=== PATIENT | female | born 1935 | race Caucasian/White ===

== ENCOUNTER 2016-03-06 09:10 | Observation (INO) | payer MEDICARE, OTHER ==
[~2016-03-06] VITALS: Ht 167.6 cm; Wt 65.4 kg
[2016-03-06] VITALS (11 sets, daily range): BP systolic 105–130; BP diastolic 31–69; PULSE 71–95; RESP 18–24; O2SAT 89–98
[~2016-03-06 09:10] MED LIST: CARV25TA2 PO; CHOL200025 PO; DIGO125T73 PO; EZET1TAB16 PO; FURO40TA4 PO; LEVO50TA39 PO; LISI40TA PO; MULT-1073 PO; SPIR25TA PO; UBID400C6 PO; WARF3TAB7 PO
--- NOTE | 2016-03-06 09:25 | ED.REPORT ---
HPI-Dyspnea / Wheezing Date of Service Mar 06, 2016 ED Provider: Pt is an 80 y/o female who presents to the ER complaining of shortness of breath that has been worsening over the last few days. Her breathing is worse with exertion. She also complains of associated fluid retention, cough, and a fever last night. Pt states she has been taking all medication as prescribed. Pt denies dysuria, vomiting, diarrhea, rash, numbness, weakness, and chest pain. She is able to complete all her daily activities without any problems. Nursing Notes Stated Complaint: RETAINING FLUID Chief Complaint: Respiratory Distress Nursing Notes Reviewed: Yes Allergies: Coded Allergies: No Known Allergies (Verified Allergy, Unknown, 07/26/15) Scheduled Carvedilol (Carvedilol) 25 Mg Tablet 37.5 MG PO BID Cholecalciferol (Vitamin D3) (Vitamin D3) 2,000 Unit Tablet 2,000 UNIT PO DAILY Digoxin (Digoxin) 125 Mcg Tablet 125 MCG PO QAM Ezetimibe/Simvastatin 10-80 mg (Vytorin 10-80 mg) 1 Each Tablet 1 TABLET PO HS Furosemide (Furosemide) 40 Mg Tablet 40 MG PO 0830,1630 Levothyroxine (Levoxyl) 50 Mcg Tablet 50 MCG PO DAILY Lisinopril (Lisinopril) 40 Mg Tablet 40 MG PO QAM Multivits-Min/FA/Lycopene/Lut (Centrum Silver Tablet) 1 Each Tablet 1 EACH PO DAILY Spironolactone (Aldactone) 25 Mg Tablet 12.5 MG PO DAILY Ubidecarenone (Co Q-10) 400 Mg Capsule 400 MG PO DAILY Warfarin Sodium (Warfarin Sodium) 3 Mg Tablet 4.5 MG PO ,,, Warfarin Sodium (Warfarin Sodium) 3 Mg Tablet 6 MG PO Mo,We,Fr General Time Seen by MD: 09:24 Chief Complaint Cough Hx Obtained From: Patient Arrived By: Ambulance Sudden in Onset?: Yes Onset Occurred: Just prior to arrival Symptom Duration: Since onset Severity: Current: No pain currently Severity: Maximum: No pain Past Medical History Past Medical History Ischemic cardiomyopathy with systolic heart failure Reports: Congestive heart failure, Coronary artery disease, Hypertension Past Surgical History Reports: Pacemaker insertion Smoking History Former Smoker Social History Alcohol Use: 1-3 per day Drug Use: Denies drug use Other Social History: Lives with children Ambulatory Status Independent Review of Systems Constitutional: Reports: Fever (last night) Respiratory: Reports: Non-productive cough, Shortness of breath Cardiovascular: Denies: Chest pain Skin: Denies Rash Complete sys rev & neg: except as marked. GI: Denies: Diarrhea, Vomiting Female: Denies: Dysuria Neurologic: Denies: Numbness, Weakness Physical Exam Initial Vital Signs Vital Signs (First) Date Time Temp Pulse Resp B/P Pulse Ox O2 Delivery O2 Flow Rate FiO2 03/06/16 09:12 36.7 71 24 106/43 90 Room Air 03/06/16 10:35 3 Initial VS: Reviewed Head / Eyes: Atraumatic, Normocephalic, PERRL Skin: Warm, Dry, No cyanosis Neurologic: Alert, Oriented, Nonfocal Psychiatric: Mood/affect normal, Behavior normal, Normal thought content General/Constitutional: Awake, Alert Neck: Atraumatic, Supple, Non-tender Respiratory / Chest: Breath sounds = bilat, No respiratory distress, No rhonchi , No wheezing Rales / Rhonchi: Positive: Rales bilateral bases Cardiovascular: Heart rate NL, Regular rhythm, Heart sounds NL no lower extremity edema Interpretation & Diagnostics Lab Results Interpretation Result Diagram: 03/06/16 0940 03/06/16 0940 Test 03/06/16 09:40 03/06/16 10:55 White Blood Count 3.8th/mm3 (3.8-10.1) Red Blood Count 4.22mil/mm3 (3.90-5.20) Hemoglobin 12.8g/dL (12.0-15.6) Hematocrit 40.3% (35.0-46.0) Mean Corpuscular Volume 95.5fL (81-100) Mean Corpuscular Hemoglobin 30.3pg (27.0-35.0) Mean Corpuscular Hemoglobin Concent 31.8% (32.0-37.0) Red Cell Distribution Width 15.1% (12.3-15.4) Platelet Count 120bil/L (150-400) Neutrophils (%) (Auto) 65.8% (40-74) Lymphocytes (%) (Auto) 15.4% (14-46) Monocytes (%) (Auto) 18.2% (4-12) Eosinophils (%) (Auto) 0.3% (0-5) Basophils (%) (Auto) 0.3% (0-3) Prothrombin Time 21.1sec (8.1-12.5) Prothromb Time International Ratio 1.95ratio Sodium Level 138mEq/L (134-144) Potassium Level 4.6mEq/L (3.5-5.2) Chloride Level 100mEq/L (97-108) Carbon Dioxide Level 25mmol/L (18-29) Blood Urea Nitrogen 27mg/dL (8-27) Creatinine 1.39mg/dL (0.57-1.00) Estimat Glomerular Filtration Rate 52mL/min (>59) Glucose Level 141mg/dL (60-99) Calcium Level 8.8mg/dL (8.5-10.1) Magnesium Level 2.4mg/dL (1.6-2.6) Total Bilirubin 0.4mg/dL (0.0-1.2) Aspartate Amino Transf (AST/SGOT) 24U/L (0-50) Alanine Aminotransferase (ALT/SGPT) 15U/L (0-32) Alkaline Phosphatase 53U/L (25-165) Troponin T 0.010ug/L (0.0-0.011) Pro-B-Type Natriuretic Peptide 7572pg/mL (0-738) Total Protein 7.0g/dL (6.4-8.4) Albumin 4.1g/dL (3.4-5.0) Procalcitonin 1.97ng/mL (See Comment) Hold Rooney Top Tube Received (Received) Digoxin Level 2.1nG/mL (0.9-2.0) Hold Urine Received (Received) ECG Interpretation ECG Interpretation: 0945 rate 70 paced rhythm Time: 11:43 Interpreted by: ED physician X-Ray Chest Interpretation Chest Xray Interpretation: IMPRESSION: Acute disease is not appreciated and a portable upright chest. Dictated by: Markus Gaytan M.D. on 03/06/2016 at 10:22 Approved by: Markus Gaytan M.D. on 03/06/2016 at 10:22 View: Portable Interpretation / Wet Read by: Interpret - Radiologist Re-Eval/Medical Decision Med Decision/Clinical Course Likely CHF with associated hypoxia. Patient will be admitted. That transiently thought about the possibility of pulmonary embolism however patient has been on warfarin with an INR of 1.95 and is a clear story of weight gain insidious in onset that seems more fitting with CHF exacerbation Source of Hx: Old records Re-Evaluation/Progress #1: Time of Eval: 11:33 Re-Evaluation/Progress Note: Pt rechecked. Informed pt of lab results and plan for treatment. Pt understands and agrees with plan. Re-Evaluation/Progress #2: Time of Eval: 12:15 Re-Evaluation/Progress Note: Pt rechecked. Informed pt of diagnosis and need for admission. Pt understands and agrees with plan. All questions addressed. Consultation : Referral / Consult Name: Cherie Maynard MD Consulted With: Hospitalist Call Returned at: 12:48 Upholstery Department Supervisor: Will see patient, Agrees with eval, Agrees with plan, Accepts admit Counseled Regarding: Diagnosis, Lab results, Need for admission Discharge & Departure Impression: Primary Impression: Hypoxia Additional Impression: CHF exacerbation Disposition: ADMITTED TO HOSPITAL Discharge Condition All VS Reviewed: Yes Condition: Stable Referrals: Yeni Montes (PCP) Scribe Attestation Portion of this note were transcribed by Gloria Davalos and Arnaldo Andres. I, Dr. Francis Brown, personally performed the history, physcial exam, and medical decision- making: I reviewed and confirmed the accuracy for the information in the transcribed note. Signed by: Arnaldo Andres and tigre Carias, 03/03/16 1300. copies to: Yeni Montes Timothy S DO Mar 06, 2016 09:25 ARNALDO ANDRES Mar 06, 2016 09:37 Gloria Davalos Mar 06, 2016 11:42
[2016-03-06] MEDS ORDERED: Furosemide 10 mg/mL 10 mL Inj IVPUSH ONE ×3 (09:40→18:05)
[2016-03-06 10:09] LABS: BASOPHILS % (AUTO) 0.3 % (0-3); EOSINOPHILS % (AUTO) 0.3 % (0-5); MONOCYTES % (AUTO) 18.2 % (4-12); Mean Corpuscular Hemoglobin 30.3 pg (27.0-35.0); Mean Corpuscular Volume 95.5 fL (81-100); NEUTROPHILS % (AUTO) 65.8 % (40-74); Platelet Count 120 bil/L (150-400)
[2016-03-06 10:24] LABS: INR 1.95 ratio
--- NOTE | 2016-03-06 10:24 | DRSVH ---
PROCEDURE: X-RAY CHEST ONE VIEW, PORTABLE ([id number]) INDICATIONS: sob TECHNIQUE: One view of the chest was acquired. COMPARISON: [facility], CR, XR CHEST 1VW (PORTABLE), 08/10/2015, 7:31. FINDINGS: Surgical changes and devices: A triple lead pacer is present from the left chest. clinical research monitor uche ds are seen over the chest. Lungs and pleura: No pleural effusions or pneumothorax. Lungs are clear of infiltrates and effusion s.. Mediastinum: Mediastinal contours appear normal. Heart size is normal. Bones and chest wall: No suspicious bony lesions. Overlying soft tissues appear unremarkable. IMPRESSION: Acute disease is not appreciated and a portable upright chest. Dictated by: Markus Gaytan M.D. on 03/06/2016 at 10:22 Approved by: Markus Gaytan M.D. on 03/06/2016 at 10:22
[2016-03-06 10:31] LABS: TROPONIN T 0.01 ug/L (0.0-0.011)
[2016-03-06 10:42] LABS: Magnesium 2.4 mg/dL (1.6-2.6)
[2016-03-06] MEDS ORDERED: Alum-Mag Hydrox-Simeth 30 mL Suspension PO PRN (12:50)
[2016-03-06] MEDS ORDERED: Ondansetron 2 mg/mL 2 mL Inj IVPUSH PRN (12:50)
--- NOTE | 2016-03-06 14:27 | PCM.HPMED ---
Subjective Date of Service Mar 06, 2016 Primary Provider: Admitting Physician: Primary Care Physician: Yeni Montes Attending Physician: Chief Complaint: Cough, difficulty breathing History of Present Illness: 80-year-old female with HFrEF EF30-35% in TTE , recurrent hospitalization with ADHF, last one in , hypertension, hyperlipidemia, hypothyroidism presented with increased weight, difficulty breathing, fever, productive cough Patient stated that she was usual state of health until couple weeks ago, she started noticing her weight has increased without particular triggers. Since last week, patient noticed that she gain more weight, contacted his precision thread grinder operator Dr. Guzman, recommended to increase her Lasix to 40 mg in the morning and continue 20mg in the evening, patient faithfully follow this recommendation. During this course, patient had intermittent cough without any sputum. Since last night, patient has been more coughing with thick yellow sputum, had temperature 101, patient had trouble sleeping because of breathing only at the last night, decided to come to ER this morning, otherwise pt denied leg swellings, increased abdominal girdle, decreased exercise tolerance, denied increased salt intake, medication noncompliance, pt took all of her med Patient denied chest pain, palpitation, nausea, vomiting, diarrhea, constipation , sick contacts, recent travel, urinary burning or frequency or urgency. In ed vs stable, 106/43, 71, tachypneic to 23, 90% on RA, improved to 96% on 3liter NC. CXR didn't show much congestions, received 80mg lasix, UOP 1.3liters out, pt subjectively felt much better. During the interview in ED, pt comfortably laying down on the bed without cough or difficulty breathing, spoke in full sentences without using accessory muscles. flu swab negative, resp PCR pending. Review of Systems: Pertinent positives as noted in history of present illness. All other systems were reviewed and are negative Allergies Coded Allergies: No Known Allergies (Verified Allergy, Unknown, 07/26/15) Home Medications ENTRESTO (sacubitril/valsartan)49-51 bid Levothyroxine 50 g daily Lipitor 40 mg daily at bedtime Digoxin 125 g daily Coreg 37.5 mg twice a day Lasix 20 mg twice a day Coumadin 4.5 rest of the days/6mg MWF PMH PAST MEDICAL HISTORY: 1. Significant for chronic systolic congestive heart failure. 2. Ischemic cardiomyopathy. 3. Severe mitral regurgitation. 4. Hypertension. 5. Hypothyroidism. 6. History of AICD. 7. The patient is on warfarin anticoagulation. 8. The last echocardiogram done on July 27, 2015 was suggestive of EF 30% to 35% with a global hypokinesia. There was evidence of diastolic dysfunction. There was moderate to severe MR and mild tricuspid regurgitation. There is mild to moderate aortic regurgitation. ALLERGIES: No known drug allergies. SOCIAL HISTORY: She and her daughter live together. She quit smoking 22 years ago and she has history of 30 pack cigarettes smoking. She drinks occasional wine. She denies drug use. FAMILY HISTORY: Positive for heart attack in father at 62 years of age. Social History Hx Alcohol Use: Yes (Occassional wine) Hx Substance Use: No Hx Tobacco Use: Yes (smoked a pack a day for 30 yrs) Smoking Status: Former Smoker Exam Vital Signs Vital Sign - Last Date Time Temp Pulse Resp B/P Pulse Ox O2 Delivery O2 Flow Rate FiO2 03/06/16 12:42 74 24 111/40 96 Nasal Cannula 3 03/06/16 09:12 36.7 Exam NAD, comfortably laying down on the bed mild JVD, MMM, no LAD RRR, nl s1, s2 no mrg Bilateral diffuse crackles up to mid lungs, intermittently wheezy S,ND,NT,normoactive BS+ warm, no edema, pulses 2/2 Lab and Diagnostics Result Diagram: 03/06/16 0940 03/06/16 0940 X-Rays, CTs and MRIs PROCEDURE: X-RAY CHEST ONE VIEW, PORTABLE ([id number]) INDICATIONS: sob TECHNIQUE: One view of the chest was acquired. COMPARISON: [facility], CR, XR CHEST 1VW (PORTABLE), 08/10/2015, 7: 31. FINDINGS: Surgical changes and devices: A triple lead pacer is present from the left chest. arborist climber leads are seen over the chest. Lungs and pleura: No pleural effusions or pneumothorax. Lungs are clear of infiltrates and effusions.. Mediastinum: Mediastinal contours appear normal. Heart size is normal. Bones and chest wall: No suspicious bony lesions. Overlying soft tissues appear unremarkable. IMPRESSION: Acute disease is not appreciated and a portable upright chest. Dictated by: Markus Gaytan M.D. on 03/06/2016 at 10:22 Approved by: Markus Gaytan M.D. on 03/06/2016 at 10:22 12-lead ECG paced Assessment & Plan 80-year-old female with HFrEF EF30-35% in TTE , recurrent hospitalization with ADHF, last one in , hypertension, hyperlipidemia, hypothyroidism presented with increased weight, difficulty breathing, fever, productive cough acute, active #Acute respiratory failure secondary to ADHF, LV failure, s/ACID, severe MR, POA , probable respiratory infection-viral or atypical given fever/purulent sputum/ elevated procalcitonin, EKG-paced rhythm, no CP suggestive of ACS. -repeat TTE as last one >7mo ago. -s/p lasix 80mg iv responded very well, will contin ue lasix one more dose and likely resume home dose, -FU infectious w/u-viral pcr, sputum cx -if pt unstable, will get cardiology for AICD check, recs on optimizing regimen. -will empirically start Levaquin for possible PNA #JERROD on CKD, likely cardiorenal, baseline Cr0.93-1.08, now 1.39 -monitor i/o, no galindo, daily wt, avoid renal toxin, adjust meds renally chronic, stable Hypothyroidism, continue Lt4 125mcg warfarin anticoagulation, ?for Afib, INR in target, will continue dispo:Patient will be admitted with inpatient status with expectation of inpatient therapy for more than 2 midnights diet: Cardiac healthy dvt ppx: Heparin subcutaneous DNR/DNI, verbally confirmed with patient, no POLST Time spent 65min Cherie Maynard MD Mar 06, 2016 14:10
[2016-03-06] MEDS ORDERED: levoFLOXacin Inj 500 MG in IV Premix 1 EACH IV ONE (14:30)
--- NOTE | 2016-03-06 14:50 | NUR ---
[place] to [facility] [place] arrived [place] [facility] from ER approx 1500 and history of CHF. Came to ER for shortness of breath and weight gain per report. received Lasix in the ER per report. Independent with transfer. O2 3L nasal cannula due to hypoxia in ER. chest X ray normal, Flu swan negative, patient received Flu vaccine early fall per report. denies pain or discomfort. heart healthy diet.
[2016-03-06] MEDS ORDERED: ATOR40TA69 PO (15:49)
[2016-03-06] MEDS ORDERED: 0.9% Sodium Chloride 250 ML ONE (15:53)
--- NOTE | 2016-03-06 17:47 | NUR ---
Observation information provided and explained.
[2016-03-07] VITALS (9 sets, daily range): BP systolic 79–125; BP diastolic 39–59; PULSE 50–97; RESP 18–22; O2SAT 93–95
--- NOTE | 2016-03-07 06:45 | NUR ---
overnight temp 102.6 Hospitalist notified and order received for blood cultures and UA. Notified lab this morning when labs not yet drawn. Expected before 7am. Addendum: 03/07/16 at 0745 by JUAN OJSE BERMUDEZ RN UA in process.
[2016-03-07] MEDS ORDERED: levoFLOXacin 500 mg Tablet PO SCH (07:30)
[2016-03-07 09:01] LABS: APPEARANCE,URINE CLEAR (CLEAR,HAZY); COLOR,URINE YELLOW (YELLOW)
[2016-03-07 09:02] LABS: OCCULT BLOOD,URINE TRACE (NEGATIVE); UROBILINOGEN,URINE NORMAL (NORMAL)
--- NOTE | 2016-03-07 12:16 | PCM.PNMED ---
Subjective Date of Service Mar 07, 2016 Subjective pt is coughing intermittently no sputum flu+ so tamiflu started pt denied orthopnea/pnd Exam Vital Signs Vital Sign - Last Date Time Temp Pulse Resp B/P Pulse Ox O2 Delivery O2 Flow Rate FiO2 03/07/16 09:12 92/48 03/07/16 09:04 37.1 72 18 95 Nasal Cannula 2.00 Intake and Output 03/06/16 03/06/16 03/07/16 Cumulative From/Thru 15:00 23:00 07:00 03/06/16 09:12 - 03/07/16 06:59 Intake Total 735 ml 400 ml 1135 ml Output Total 1600 ml 250 ml 300 ml 2150 ml Balance -1600 ml 485 ml 100 ml -1015 ml Intake Oral 600 ml 400 ml 1000 ml IV Total 135 ml 135 ml Output Urine Total 1600 ml 250 ml 300 ml 2150 ml # Voids 4 2 6 # Bowel Movements 0 0 Exam NAD, comfortably laying down on the bed no JVD, MMM, no LAD RRR, nl s1, s2 no mrg CTAB, no w,c S,ND,NT,normoactive BS+ warm, no edema, pulses 2/2 IVs and Medications Medications Reviewed: Medications were reviewed in detail Lab and Diagnostics Result Diagram: 03/06/1693903/06/16 0940 X-Rays, CTs and MRIs PROCEDURE: X-RAY CHEST ONE VIEW, PORTABLE ([id number]) INDICATIONS: sob TECHNIQUE: One view of the chest was acquired. COMPARISON: [facility], CR, XR CHEST 1VW (PORTABLE), 08/10/2015, 7: 31. FINDINGS: Surgical changes and devices: A triple lead pacer is present from the left chest. groundwater monitoring technician leads are seen over the chest. Lungs and pleura: No pleural effusions or pneumothorax. Lungs are clear of infiltrates and effusions.. Mediastinum: Mediastinal contours appear normal. Heart size is normal. Bones and chest wall: No suspicious bony lesions. Overlying soft tissues appear unremarkable. IMPRESSION: Acute disease is not appreciated and a portable upright chest. Dictated by: Markus Gaytan M.D. on 03/06/2016 at 10:22 Approved by: Markus Gaytan M.D. on 03/06/2016 at 10:22 12-lead ECG paced Assessment & Plan 80-year-old female with HFrEF EF30-35% in TTE , recurrent hospitalization with ADHF, last one in , hypertension, hyperlipidemia, hypothyroidism presented with increased weight, difficulty breathing, fever, productive cough acute, active #Acute respiratory failure secondary to influenza A+ and transiet volume overload secondary to LV failure, s/ACID, severe MR, POA, probable respiratory infection-viral or atypical given fever/purulent sputum/elevated procalcitonin, EKG-paced rhythm, no CP suggestive of ACS. - repeat TTE -s/p lasix 80mg iv bid on admission, responded very well, pt seemed euvolemic today, resume home dose this evening. -FU infectious w/u- sputum cx -if pt unstable, will get cardiology for AICD check, recs on optimizing regimen. -empirically started Levaquin for possible PNA, stop today given flu+ #JERROD on CKD, likely cardiorenal, baseline Cr0.93-1.08, admitted with 1.39 -monitor i/o, no galindo, daily wt, avoid renal toxin, adjust meds renally chronic, stable Hypothyroidism, continue Lt4 125mcg warfarin anticoagulation, ?for Afib, INR in target, will continue dispo:likely tomorrow home diet: Cardiac healthy dvt ppx: Heparin subcutaneous DNR/DNI, verbally confirmed with patient, no POLST VTE Mechanical Devices: Intermittant Pneumatic CD Time spent 35 minutes Cherie Maynard MD Mar 07, 2016 12:15
[2016-03-07 12:28] LABS: BASOPHILS % (AUTO) 0.3 % (0-3); EOSINOPHILS % (AUTO) 0 % (0-5); MONOCYTES % (AUTO) 16.9 % (4-12); Mean Corpuscular Hemoglobin 30.6 pg (27.0-35.0); Mean Corpuscular Volume 97.3 fL (81-100); NEUTROPHILS % (AUTO) 70.6 % (40-74); Platelet Count 167 bil/L (150-400)
[2016-03-07 12:40] LABS: Magnesium 2.1 mg/dL (1.6-2.6)
--- NOTE | 2016-03-07 15:13 | NUR ---
HR/BP Pleasant and cooperative pt, able to make needs known. d/t low BP, pt has bed alarm on, compliant with waiting for assistance. Pt asymptomatic. states to be tired d/t lack of sleep past 2 nights. aware of BP, will continue to monitor-pt with hx of CHF. Monitor tele reported AIVR this AM (14 beats), MD aware, reported to have had 2 other episodes over night. Will continue with frequent monitoring. Addendum: 03/07/16 at 1627 by KAMERON MAKI RN Call recd from tele, pt had 5 and 7 beats of VTACH 10 sec apart. Message sent to Dr. Chiang asymptomatic. Primary RN was in room as call was recd.
--- NOTE | 2016-03-07 15:31 | NUR ---
Social Work-initial assessment: Data:See initial assessment. Pt is a 80 y/o female who was admitted on 03/06/16 for hypoxia per H&P. Pt's insurance is [employer] and PCP is [facility]. EMR Reviewed. Pt's readmission score is 3-high risk. SW met with pt at bedside to discuss discharge planning, SW role explained. Pt is alert and oriented x3. Pt resides at home with her daughter in [place] in a single level home where she remains independent with ADLs. Pt drives and does not use any DME at baseline. Pt has no HH Or SNF history. Pt has no group home care or VA benefits. SW discussed DPOA/advanced directive, pt states they have completed this, SW encouraged pt to bring a copy into the hospital. Pt currently on O2, which pt does not have at home. Per RN notes, pt has been up independent in her room. Pt's daughter to provide transport home at discharge. SW provided phone number and plan on white board in room. No anticipated discharge needs. SW will continue to follow if needs arise. Assessment:Pt who is independent at baseline. Plan:Pt to discharge home with daughter when medically stable via POV. R/O Home o2 needs. No anticipated discharge needs. SW will continue to follow if needs arise. JV Gaona Addendum: 03/07/16 at 1534 by EDY QUINTERO SS Amended: Links added.
[2016-03-07 16:50] LABS: INR 1.5 ratio
[2016-03-07 17:53] LABS: Magnesium 2.2 mg/dL (1.6-2.6)
--- NOTE | 2016-03-07 19:20 | PCM.CONPHA ---
Subjective Date of Service: Mar 07, 2016 Cough, difficulty breathing Reason for Pharmacy Consult: Anticoagulation Management Objective Vital Signs Date Time Temp Pulse Resp B/P Pulse Ox O2 Delivery O2 Flow Rate FiO2 03/07/16 16:16 37.4 77 20 114/47 95 Nasal Cannula 2.00 03/07/16 12:56 36.7 70 20 98/44 95 Nasal Cannula 2.00 03/07/16 09:12 92/48 03/07/16 09:04 37.1 72 18 79/39 95 Nasal Cannula 2.00 03/07/16 08:52 Supplement Oxygen 03/07/16 08:00 79 03/07/16 05:28 37.2 89 20 120/53 93 Nasal Cannula 2.00 03/07/16 01:30 Supplement Oxygen 03/07/16 00:55 39.2 97 22 125/59 93 Nasal Cannula 2.00 03/06/16 23:20 89 03/06/16 20:50 37.3 90 20 119/69 94 Nasal Cannula 2.00 03/06/16 19:55 Supplement Oxygen Intake and Output 03/04/16 03/05/16 03/06/16 23:59 23:59 23:59 Intake Total 735 ml Output Total 1850 ml Balance -1115 ml Weight (Kilograms): 66.800 Height (Feet): 5 Height (Inches): 6.00 Test 03/06/16 09:40 03/07/16 01:45 03/07/16 05:27 03/07/16 16:22 Troponin T 0.010ug/L (0.0-0.011) Pro-B-Type Natriuretic Peptide 7572pg/mL (0-738) Procalcitonin 1.97ng/mL (See Comment) White Blood Count 7.8th/mm3 (3.8-10.1) Red Blood Count 3.37mil/mm3 (3.90-5.20) Hemoglobin 10.3g/dL (12.0-15.6) Hematocrit 32.8% (35.0-46.0) Mean Corpuscular Volume 97.3fL (81-100) Mean Corpuscular Hemoglobin 30.6pg (27.0-35.0) Mean Corpuscular Hemoglobin Concent 31.4% (32.0-37.0) Red Cell Distribution Width 15.0% (12.3-15.4) Platelet Count 167bil/L (150-400) Neutrophils (%) (Auto) 70.6% (40-74) Lymphocytes (%) (Auto) 12.1% (14-46) Monocytes (%) (Auto) 16.9% (4-12) Eosinophils (%) (Auto) 0% (0-5) Basophils (%) (Auto) 0.3% (0-3) Hold Purple Top Tube Received (Received) Hold [place] Top Tube Received (Received) Hold Rooney Top Tube Received (Received) Urine Color Yellow (YELLOW) Urine Appearance Clear (CLEAR,HAZY) Urine pH 5.0 (5.0-8.0) Urine Specific Otho 1.025 (1.003-1.035) Urine Protein Negativemg/dL (NEG,TRACE) Urine Glucose (UA) Negativemg/dL (NEGATIVE) Urine Ketones Tracemg/dL (NEGATIVE) Urine Occult Blood Trace (NEGATIVE) Urine Nitrite Negative (NEGATIVE) Urine Bilirubin Negative (NEGATIVE) Urine Urobilinogen Normalmg/dL (NORMAL) Urine Leukocyte Esterase Negative (NEGATIVE) Urine RBC 3-10/hpf (0-2) Urine WBC 0-5/hpf (0-5) Urine Epithelial Cells Occasional/hpf (NONE-MOD) Urine Crystals None seen (NONE SEEN) Urine Bacteria None/hpf (NONE-FEW) Urine Hyaline Casts 5/20/lpf (NONE) Urine Granular Casts Occasional (NONE SEEN) Urine Waxy Casts None seen (NONE SEEN) Urine Red Blood Cell Casts None seen (NONE SEEN) Urine White Blood Cell Casts None seen (NONE SEEN) Urine Mucus None seen (None Seen) Urine Trichomonas None seen (NONE SEEN) Urine Yeast None (NONE SEEN) Urinalysis Comment None Urine Culture Reflexed Not indicated Hold Urine Received (Received) Prothrombin Time 16.2sec (8.1-12.5) Prothromb Time International Ratio 1.50ratio Test 03/07/16 16:56 03/07/16 18:50 Sodium Level 135mEq/L (134-144) Potassium Level 4.4mEq/L (3.5-5.2) Chloride Level 93mEq/L (97-108) Carbon Dioxide Level 27mmol/L (18-29) Blood Urea Nitrogen 37mg/dL (8-27) Creatinine 1.98mg/dL (0.57-1.00) Estimat Glomerular Filtration Rate 35mL/min (>59) Glucose Level 138mg/dL (60-99) Calcium Level 8.6mg/dL (8.5-10.1) Magnesium Level 2.2mg/dL (1.6-2.6) Total Bilirubin 0.6mg/dL (0.0-1.2) Aspartate Amino Transf (AST/SGOT) 24U/L (0-50) Alanine Aminotransferase (ALT/SGPT) 15U/L (0-32) Alkaline Phosphatase 48U/L (25-165) Total Protein 6.3g/dL (6.4-8.4) Albumin 3.9g/dL (3.4-5.0) Assessment/Plan Assessment/Plan Indication: ? A-Fib Goal INR: 2 - 3; INR today is 1.5 Home dose of 6mg to be given today Daily INR ordered Ollie Kiran PharmD Mar 07, 2016 19:20
[2016-03-08] VITALS (11 sets, daily range): BP systolic 91–119; BP diastolic 40–64; PULSE 56–87; RESP 16–19; O2SAT 94–100
--- NOTE | 2016-03-08 02:26 | NUR ---
VTach Tele reported 2 different episodes of VTach. Reports of previous VTach from shift report. 20 beats at 1940 on 03/07, asymptomatic with no c/o cp/pressure/dizziness. paged. 17 more beats at 0105. Asymptomatic with no complaints. paged. Instructed to give dose of 12.5 mg Carvedilol STAT/early. Dose administered. Post BP 95/40 and HR of 56. No s/sx distress. Continuing to monitor.
[2016-03-08 05:32] LABS: BASOPHILS % (AUTO) 0.5 % (0-3); EOSINOPHILS % (AUTO) 1.1 % (0-5); MONOCYTES % (AUTO) 22.9 % (4-12); Mean Corpuscular Hemoglobin 30.1 pg (27.0-35.0); Mean Corpuscular Volume 95.2 fL (81-100); NEUTROPHILS % (AUTO) 47.4 % (40-74); Platelet Count 120 bil/L (150-400)
[2016-03-08 05:58] LABS: INR 1.49 ratio
[2016-03-08 06:09] LABS: Magnesium 2.3 mg/dL (1.6-2.6); Phosphorus 4.1 mg/dL (2.5-4.9)
--- NOTE | 2016-03-08 14:24 | PCM.PHAPRO ---
Progress Cough, difficulty breathing Warfarin Management by Pharmacy Indication: Afib CHADS2-VASc: 5 Home Dose: Warfarin 6 mg Mon/Mon/Mon; 4.5 mg AOD INR Goal: 2-3 Duration: Unknown Anticoagulation Trends Lab Date Result Dose INR 03/06/16 1.95 None given INR 03/07/16 1.50 6 mg INR 03/08/16 1.49 Therapeutic bridge therapy: None Assessment/Plan - Subtherapeutic INR with no dose given while inpatient on 03/06 (unknown if taken at home but unlikely given trend). -Will continue warfarin 6 mg today. -Pharmacy to monitor INR/CBC/signs of bleeding while inpatient. Thanks, Molina Steinberg Pharm.D. Molina Steinberg Mar 08, 2016 14:24
--- NOTE | 2016-03-08 14:28 | NUR ---
Social Work-readiness for discharge: Data:EMR Reviewed. Pt is on day 2 of hospitalization for hypoxia per H&P. Per MD,pt is not medically stable, but may be ready tomorrow. Pt resides at home with her daughter where she remains independent with ADLs. SW confirmed plan for home. Pt remains in O2, RN working on weaning this, if not Home o2 may be needed. No other anticipated discharge needs. SW will continue to follow if needs arise. Assessment:Pt who is independent at baseline. Plan:Pt to discharge home when medically stable via pOV. R/O home O2 needs. No other anticipated discharge needs. SW will continue to follow if needs arise. JV Gaona
--- NOTE | 2016-03-08 16:12 | NUR ---
Shift report Very pleasant and cooperative pt. Able to make needs known. Had an episode (4sec) of VTACH early in shift, MD made aware. Pt was asymptomatic. Still on SBA with bed alarms d/t low BP. Pt sating well on via NC. Will continue with frequent monitoring.
--- NOTE | 2016-03-08 16:22 | PCM.PNMED ---
Subjective Date of Service Mar 08, 2016 Subjective pt is ambulating w/o dizziness, SOB, c/o mild cough, but in general feels better Exam Vital Signs Vital Sign - Last Date Time Temp Pulse Resp B/P Pulse Ox O2 Delivery O2 Flow Rate FiO2 03/08/16 14:19 36.9 87 18 98/64 96 Nasal Cannula 1.00 Intake and Output 03/07/16 03/07/16 03/08/16 Cumulative From/Thru 15:00 23:00 07:00 03/06/16 09:12 - 03/08/16 05:36 Intake Total 900 ml 200 ml 2235 ml Output Total 400 ml 2550 ml Balance 500 ml 200 ml -315 ml Intake Oral 900 ml 200 ml 2100 ml IV Total 135 ml Output Urine Total 400 ml 2550 ml # Voids 2 3 11 # Bowel Movements 0 0 Exam NAD, comfortably laying down on the bed no JVD, MMM, no LAD RRR, nl s1, s2 no mrg CTAB, no w,c S,ND,NT,normoactive BS+ warm, no edema, pulses 2/2 IVs and Medications Medications Reviewed: Medications were reviewed in detail Lab and Diagnostics Result Diagram: 03/08/1651903/08/16 0520 X-Rays, CTs and MRIs PROCEDURE: X-RAY CHEST ONE VIEW, PORTABLE ([id number]) INDICATIONS: sob TECHNIQUE: One view of the chest was acquired. COMPARISON: [facility], CR, XR CHEST 1VW (PORTABLE), 08/10/2015, 7: 31. FINDINGS: Surgical changes and devices: A triple lead pacer is present from the left chest. paper core machine operator leads are seen over the chest. Lungs and pleura: No pleural effusions or pneumothorax. Lungs are clear of infiltrates and effusions.. Mediastinum: Mediastinal contours appear normal. Heart size is normal. Bones and chest wall: No suspicious bony lesions. Overlying soft tissues appear unremarkable. IMPRESSION: Acute disease is not appreciated and a portable upright chest. Dictated by: Markus Gaytan M.D. on 03/06/2016 at 10:22 Approved by: Markus Gaytan M.D. on 03/06/2016 at 10:22 12-lead ECG paced Assessment & Plan 80-year-old female with HFrEF EF30-35% in TTE , recurrent hospitalization with ADHF, last one in , hypertension, hyperlipidemia, hypothyroidism presented with increased weight, difficulty breathing, fever, productive cough acute, active #Acute respiratory failure secondary to influenza A+ and transient volume overload secondary to LV failure, s/ACID, severe MR, POA, EKG-paced rhythm, no CP suggestive of ACS, other infectious w/u- sputum cx normal, BCX ngtd -pending TTE, follow up prior to d/c -s/p lasix 80mg iv bid on admission, responded very well, pt seemed euvolemic today, resume home dose this evening. -if pt unstable, will get cardiology for AICD check, recs on optimizing regimen. -empirically started Levaquin for possible PNA, stop 03/07 given flu+ #JERROD on CKD, likely cardiorenal, baseline Cr0.93-1.08, admitted with 1.39, worsened with lasix, concerning for ATN -monitor i/o, no galindo, daily wt, avoid renal toxin, adjust meds renally -held diuretics after lasix initial iv dosing, resume 20mg qd to bid upon d/c if renal function improve tomorrow chronic, stable Hypothyroidism, continue Lt4 125mcg warfarin anticoagulation, ?for Afib, INR in target, will continue dispo:delayed d/c today due to worsening JERROD, O2 requirement, likely home tomorrow, no need diet: Cardiac healthy dvt ppx: Heparin subcutaneous DNR/DNI, verbally confirmed with patient, no POLST VTE Mechanical Devices: Intermittant Pneumatic CD Time spent 35min Cherie Maynard MD Mar 08, 2016 16:22
--- NOTE | 2016-03-08 16:48 | DRSVH ---
[facility] [address] [place] [address] Echocardiogram Report Name: MELISSA HENDRICKSON te: 03/08/2016 Height: 66 in Hospital Exam Location: [facility] Weight: 147 lb Gender: Female BSA: 1.8 m2 : 1935 Age: 80 yrs BP: 100/40 mmHg Reason For Study: Congestive Heart Failure Ordering Physician: HOSPITALIST SVHPerformed By: Cameron Vazquez Referring Physician: BHARATI BELL Interpretation Summary The left ventricle is severely dilated. LVEDD has increased since last exam The ejection fraction is estimated to be 25% There is inferior wall akinesis. There is basal posterolateral wall akinesis. There is proximal mid posteriolateral wall akinesis. Septal motion is consistent with conduction abnormality. The interatrial septum bows toward right atrium consistent with elevated left atrial pressure. There is severe mitral regurgitation. There is mild to moderate aortic regurgitation. The right ventricular systolic pressure is estimated at least 42 mmHg assuming a right atrial pressure of 8 mm Hg. ON suprasternal images, a 4.0 x 4.6 cm heterogeneous echogenicity was seen. This could represent a thyroid mass. Consider neck USG. Procedure: A two-dimensional transthoracic echocardiogram with color flow and Doppler was performed. The study quality was technically good. Comparison is made with the echocardiogram of 07/27/15. The patient had frequent PVCs during the exam. Left Ventricle: The left ventricle is severely dilated. The ejection fraction is estimated to be 25-30%. There is inferior wall akinesis. There is basal posterolateral wall akinesis. There is proximal mid posteriolateral wall akinesis. Septal motion is consistent with conduction abnormality. Right Ventricle: The right ventricle grossly appears normal in size with probable normal systolic function. There is a pacemaker lead in the right ventricle. Atria: The left atrium is severely dilated. There is a catheter/pacemaker lead seen in the right atrium. Right atrial size is normal. The interatrial septum bows toward right atrium consistent with elevated left atrial pressure. There is no Doppler evidence for an atrial septal defect. Mitral Valve: The mitral valve leaflets are mildly calcified. There is severe mitral regurgitation. Compared to the prior echo study, there has been an increase in the severity of mitral regurgitation. Aortic Valve: The aortic valve is trileaflet. The aortic valve is slightly calcified. There is no aortic valve stenosis. There is mild to moderate aortic regurgitation. Tricuspid Valve: The tricuspid valve is normal. Doppler angle for TR was suboptimal. The right ventricular systolic pressure is estimated at least 42 mmHg assuming a right atrial pressure of 8 mm Hg. Pulmonic Valve: The pulmonic valve is not well seen, but is grossly normal. There is mild to moderate pulmonic regurgitation. Great Vessels: The aortic root is normal size. The dimensions of the ascending aorta are normal. The pulmonary artery is normal size. The IVC is dilated (diameter is greater than 2.1 cm) yet it collapses greater than 50% with a sniff. This suggests a right atrial pressure of 8 mm Hg. Pericardium/ Pleura There is no pericardial effusion. There is no pleural effusion. MMode/2D Measurements & Calculations LVIDd: 7.8 cm RA long axis LVOT diam LVIDs: 7.0 cm LA A2 area: 33.1 cm FS: 10.6 % LA A4 area: 36.9 cm RA area AoV Opening EPSS: 2.5 cm LA length (vol): 6.7 cm IVSd: 1.1 cm LA vol: 154.7 ml : 15.4 cm Ao root diam LVPWd: 0.67 cm LA vol index RA vol : 41.1 ml asc Aorta RA Diam: 3.0 cm IVC diam: 2.4 cm : 23.4 mm2 LV mensah. diameter/BSA LV sys. diameter/BSA (cm/m^2): 4.5 (cm/m^2): 4.0 Doppler Measurements & Calculations Ao V2 max MV E max zain MV E/A: 1.1 TR max zain : 179.8 cm/sec : 104.7 cm/sec Med Peak E' Zain : 292.8 cm/sec Ao max PG MV A max zain TR max PG : 12.9 mmHg : 93.4 cm/sec E/E' med: 33.7 : 34.3 mmHg Ao mean PG MR ERO: 0.29 cm2 Lat Peak E' Zain PA V2 max : 82.8 cm/sec LVOT Max Zain E/E' lat: 31.1 PA mean PG : 79.5 cm/sec : 1.5 mmHg VERONICA(I,D): 2.4 cm sev ratio AI P1/2t : 435.1 msec AI dec slope : 230.3 cm/s2c MV dec time Ao V2 mean LV V1 max PG MR flow rate : 0.17 sec : 112.3 cm/sec : 160.8 cm3/sec Ao V2 VTI: 33.2 cm LV V1 VTI MR PISA radius VERONICA(V,D): 2.3 cm2 : 15.1 cm PA V2 mean VERONICA indexed to BSA E/e' average : 59.0 cm/sec (cm^2/m^2): 1.4 : 32.4 PA pr(Accel) : 37.5 mmHg Electronically signed by: Norbert Ochoa on Reading Physician:03/08/2016 04:47 PM
[2016-03-09 01:01] VITALS: BP 113/67; PULSE 71; RESP 18; O2SAT 95
--- NOTE | 2016-03-09 05:03 | NUR ---
Lead Pressman Tele reported 2 episodes of VTach during shift. 2215 with 10 beats and 0430 for 5 beats. Pt is asymptomatic, sleeping, no s/sx distress and does not report any change in symptoms. paged. BP improving from trend and HR stable. Tele: AVPaced 76 with PVC's. Continuing to monitor.
[2016-03-09 05:51] VITALS: BP 114/61; PULSE 70; RESP 18; O2SAT 95
[2016-03-09 06:42] LABS: BASOPHILS % (AUTO) 0.4 % (0-3); EOSINOPHILS % (AUTO) 1.3 % (0-5); MONOCYTES % (AUTO) 17.7 % (4-12); Mean Corpuscular Hemoglobin 30.1 pg (27.0-35.0); Mean Corpuscular Volume 95.7 fL (81-100); NEUTROPHILS % (AUTO) 49.1 % (40-74); Platelet Count 137 bil/L (150-400)
[2016-03-09 07:05] LABS: Magnesium 2.4 mg/dL (1.6-2.6); Phosphorus 3.6 mg/dL (2.5-4.9)
[2016-03-09 07:08] LABS: INR 1.45 ratio
[2016-03-09 08:00] VITALS: PULSE 75
--- NOTE | 2016-03-09 10:35 | DRSVH ---
PROCEDURE: X-RAY CHEST, TWO VIEWS ([id number]) INDICATIONS: Follow up for Influenza A with Possible infiltrate TECHNIQUE: 2 views of the chest were acquired. COMPARISON: [facility], CR, XR CHEST 2VW, 03/23/2015, 9:27. FINDINGS: Surgical changes and devices: Left chest AICD is stable. Lungs and pleura: No pleural effusions or pneumothorax. Lungs are clear. Mediastinum: Mediastinal contours are normal. Heart size is normal. Bones and chest wall: No suspicious bony abnormalities. Soft tissues appear unremarkable. IMPRESSION: No acute cardiopulmonary disease process. Dictated by: Kasia Natarajan MD, PhD on 03/09/2016 at 10:32 Approved by: Kasia Natarajan MD, PhD on 03/09/2016 at 10:32
--- NOTE | 2016-03-09 12:00 | DRSVH ---
PROCEDURE: US THYROID SONOGRAM INDICATIONS: Thyroid Mass seen on CXR TECHNIQUE: Real-time scanning was performed of the thyroid gland, with image documentation. COMPARISON: [facility], CR, XR CHEST 2VW, 03/09/2016, 9:56. [facility], US, THYROID,NECK OR HEAD SONOGRAM, 12/23/2010, 14:08. FINDINGS: Right: Thyroid lobe measures 6.4 x 5.1 x 4.9 cm. there is a 5.2 x 4.8 x 4.9 cm solid, heterogeneous nodule with smooth margins in the mid aspect of the right lobe that is stable in size compared to maya or ultrasound. Left: Thyroid lobe measures 3.7 x 1.4 x 1.3 cm. there is a 0.5 x 0.6 x 0.4 cm predominantly solid, s mooth margined heterogeneous echotexture nodule in the mid aspect left lobe of the thyroid gland. Isthmus: 3 mm thick. Lymph nodes: No regional lymphadenopathy. IMPRESSION: 1. Large right thyroid nodule approximately change compared to prior ultrasound. Recommend ultrasound guided fine needle aspiration for further evaluation. 2. Small left thyroid solid nodule. Continued sonographic surveillance recommended. Dictated by: Kasia Natarajan MD, PhD on 03/09/2016 at 11:58 Approved by: Kasia Natarajan MD, PhD on 03/09/2016 at 11:58
--- NOTE | 2016-03-09 13:42 | PCM.PHAPRO ---
Progress Cough, difficulty breathing Warfarin Management by Pharmacy Indication: Afib CHADS2-VASc: 5 Home Dose: Warfarin 6 mg Mon/Mon/Fri; 4.5 mg AOD INR Goal: 2-3 Duration: Unknown Anticoagulation Trends Lab Date Result Dose INR 03/06/16 1.95 None given INR 03/07/16 1.50 6 mg INR 03/08/16 1.49 6 mg INR 03/09/16 1.45 Therapeutic bridge therapy: None Assessment/Plan - Subtherapeutic INR. No other changes noted other than missed dose on 03/06. May be attributed to dietary changes while inpatient. -Will continue warfarin 6 mg today. If no response tomorrow, will increase dose accordingly. -Pharmacy to monitor INR/CBC/signs of bleeding while inpatient. Thanks, Molina Steinberg Pharm.D. Molina Steinberg Mar 09, 2016 13:42
[2016-03-09 14:06] VITALS: BP 112/68; PULSE 88; RESP 18; O2SAT 95
--- NOTE | 2016-03-09 16:42 | PCM.DIMED ---
Discharge Instructions Date of Service Mar 09, 2016 Dates of Hospitalization Mar 06, 2016 at 14:35 Discharge Diagnosis Discharge Diagnosis Influenza A Diet Heart Healthy Activity Limited until seen by PCP Call your provider Fever or Chills, Shortness of breath, Bleeding, Chest pain, Vomitting, Excessive diarrhea, Weakness (unilateral) Patient Instructions Follow-up Provider: Maeve Felix MD Follow-up with PCP in: 1 week Provider: Jocelyn Lopez MD Follow-up in: 1 week Danny Blue MD Mar 09, 2016 16:42
[2016-03-09] MEDS ORDERED: OSEL30CA PO (16:44)
--- NOTE | 2016-03-09 16:46 | PCM.DIMED ---
Discharge Instructions Date of Service Mar 09, 2016 Dates of Hospitalization Mar 06, 2016 at 14:35 Discharge Diagnosis Discharge Diagnosis Influenza A Diet Heart Healthy Activity Limited until seen by PCP Call your provider Fever or Chills, Shortness of breath, Bleeding, Chest pain, Vomitting, Excessive diarrhea, Weakness (unilateral) Patient Instructions Follow-up Provider: Maeve Felix MD Follow-up with PCP in: 1 week (Patient needs referral for a Fine Needle Biopsy of a Right Thyroid Nodule) Provider: Jocelyn Lopez MD Follow-up in: 1 week Danny Blue MD Mar 09, 2016 16:46
--- NOTE | 2016-03-09 18:00 | NUR ---
Discharge Reviewed d/c instructions with pt including care notes and new prescriptions, pt signed and given originals, copies to chart. IV d/c intact, tele removed. VS stable at time of d/c. All belongings packed by pt and daughter in room and taken with them. Pt taken off unit via WC by LIZANDRO to daughter car downstairs for ride home
--- NOTE | 2016-03-10 00:19 | PCM.DC.MED ---
Discharge Summary Date of Service Mar 10, 2016 Dates of Hospitalization Date of Hospital Admission Mar 06, 2016 at 14:35 Date of Discharge: Mar 09, 2016 Providers: Admitting Physician: Cherie Bell MD Primary Care Physician: Yeni Montes Attending Physician: Cherie Bell MD Diagnosis at Time of Discharge Diagnosis at Time of Discharge Influenza A Procedures XRay, CTs & MRIs PROCEDURE: X-RAY CHEST ONE VIEW, PORTABLE ([id number]) INDICATIONS: sob TECHNIQUE: One view of the chest was acquired. COMPARISON: [facility], CR, XR CHEST 1VW (PORTABLE), 08/10/2015, 7: 31. FINDINGS: Surgical changes and devices: A triple lead pacer is present from the left chest. electronic device monitor leads are seen over the chest. Lungs and pleura: No pleural effusions or pneumothorax. Lungs are clear of infiltrates and effusions.. Mediastinum: Mediastinal contours appear normal. Heart size is normal. Bones and chest wall: No suspicious bony lesions. Overlying soft tissues appear unremarkable. IMPRESSION: Acute disease is not appreciated and a portable upright chest. Dictated by: Markus Gaytan M.D. on 03/06/2016 at 10:22 Approved by: Markus Gaytan M.D. on 03/06/2016 at 10:22 ECG 12 Lead paced Cardiac Echo Impression Echocardiogram Report Name: MELISSA HENDRICKSON te: 03/08/2016 Height: 66 in Hospital Exam Location: [facility] Weight: 147 lb Gender: Female BSA: 1.8 m2 : 1935 Age: 80 yrs BP: 100/40 mmHg Reason For Study: Congestive Heart Failure Ordering Physician: HOSPITALIST SVHPerformed By: Cameron Vazquez Referring Physician: CHERIE BELL Interpretation Summary The left ventricle is severely dilated. LVEDD has increased since last exam The ejection fraction is estimated to be 25% There is inferior wall akinesis. There is basal posterolateral wall akinesis. There is proximal mid posteriolateral wall akinesis. Septal motion is consistent with conduction abnormality. The interatrial septum bows toward right atrium consistent with elevated left atrial pressure. There is severe mitral regurgitation. There is mild to moderate aortic regurgitation. The right ventricular systolic pressure is estimated at least 42 mmHg assuming a right atrial pressure of 8 mm Hg. ON suprasternal images, a 4.0 x 4.6 cm heterogeneous echogenicity was seen. This could represent a thyroid mass. Consider neck USG. Brief History 80-year-old female with HFrEF EF30-35% in TTE , recurrent hospitalization with ADHF, last one in , hypertension, hyperlipidemia, hypothyroidism presented with increased weight, difficulty breathing, fever, productive cough Patient stated that she was usual state of health until couple weeks ago, she started noticing her weight has increased without particular triggers. Since last week, patient noticed that she gain more weight, contacted his continuous still operator Dr. Guzman, recommended to increase her Lasix to 40 mg in the morning and continue 20mg in the evening, patient faithfully follow this recommendation. During this course, patient had intermittent cough without any sputum. Since last night, patient has been more coughing with thick yellow sputum, had temperature 101, patient had trouble sleeping because of breathing only at the last night, decided to come to ER this morning, otherwise pt denied leg swellings, increased abdominal girdle, decreased exercise tolerance, denied increased salt intake, medication noncompliance, pt took all of her med Patient denied chest pain, palpitation, nausea, vomiting, diarrhea, constipation , sick contacts, recent travel, urinary burning or frequency or urgency. In ed vs stable, 106/43, 71, tachypneic to 23, 90% on RA, improved to 96% on 3liter NC. CXR didn't show much congestions, received 80mg lasix, UOP 1.3liters out, pt subjectively felt much better. During the interview in ED, pt comfortably laying down on the bed without cough or difficulty breathing, spoke in full sentences without using accessory muscles. flu swab negative, resp PCR was negative the time of admission. Patient was admitted to the hospitalist service. Hospital Course 80-year-old female with HFrEF EF30-35% in TTE , recurrent hospitalization with ADHF, last one in , hypertension, hyperlipidemia, hypothyroidism presented with increased weight, difficulty breathing, fever, productive cough acute, active # Acute respiratory failure secondary to influenza A+ and transient volume overload secondary to LV failure, s/ACID, severe MR, POA, EKG-paced rhythm, no CP suggestive of ACS, other infectious w/u- sputum cx normal, BCX ngtd - TTE showed the left ventricle is severely dilated. LVEDD has increased since last exam, the ejection fraction is estimated to be 25% -s/p lasix 80mg iv bid on admission, responded very well, pt seemed euvolemic today, resume home dose this evening. -if pt unstable, will get cardiology for AICD check, recs on optimizing regimen. -empirically started Levaquin for possible PNA, stopped 03/07 given flu+ # JERROD on CKD, likely cardiorenal, baseline Cr0.93-1.08, admitted with 1.39, worsened with lasix, concerning for ATN -monitor i/o, no galindo, daily wt, avoid renal toxin, adjust meds renally -held diuretics after lasix initial iv dosing, resume 20mg qd to bid upon d/c since renal function has improved chronic, stable Hypothyroidism, continue Lt4 125mcg warfarin anticoagulation, ?for Afib, INR in target, will continue diet: Cardiac healthy dvt ppx: Heparin subcutaneous DNR/DNI, verbally confirmed with patient, no POLST Disposition: Patient very much wants to go home today. Encouraged her to get a.m. thyroid biopsy as an outpatient with the fine-needle aspiration by interventional radiology. She agreed to do so. Discharged home today. Exam Vital Signs (Last) Date Time Temp Pulse Resp B/P Pulse Ox O2 Delivery O2 Flow Rate FiO2 03/09/16 14:06 36.8 88 18 112/68 95 Nasal Cannula 1.00 Exam General: Patient is in no apparent distress HEENT: Head is atraumatic normocephalic. Eyes: Pupils are equally round and reactive to light and accommodation. Extraocular muscles are intact. Sclera are white anicteric. Subconjunctival mucosa is pink. Ears and nose are unremarkable. Oropharynx: There is no mucosal lesions, there is no thrush, there is no pharyngitis. Neck: Is supple, there are no nodes, or masses, or tenderness. Chest: Is clear to auscultation and percussion. There are no rales, rhonchi, wheezes or rubs. Heart: Rate, rhythm is regular. There is no new murmur, rub, or gallop. Abdomen: Good bowel sounds are present. Abdomen is soft, nontender, no organomegaly or masses were appreciated. Extremities: Are symmetrical and well perfused. There is no edema, there is no cellulitis, no rash. Neurologic: There are no focal neurological deficits. Cranial nerves II through XII are intact. There are no sensory or motor deficits. Psychiatric: Patients mood is calm and shows no sign of agitation. Genital: Deferred Rectal: Deferred Test 03/06/16 09:40 03/07/16 01:45 03/07/16 05:27 03/08/16 05:20 Troponin T 0.010ug/L (0.0-0.011) Pro-B-Type Natriuretic Peptide 7572pg/mL (0-738) Procalcitonin 1.97ng/mL (See Comment) Hold Purple Top Tube Received (Received) Hold [place] Top Tube Received (Received) Hold [place] Top Tube Received (Received) Urine Color Yellow (YELLOW) Urine Appearance Clear (CLEAR,HAZY) Urine pH 5.0 (5.0-8.0) Urine Specific [place] 1.025 (1.003-1.035) Urine Protein Negativemg/dL (NEG,TRACE) Urine Glucose (UA) Negativemg/dL (NEGATIVE) Urine Ketones Tracemg/dL (NEGATIVE) Urine Occult Blood Trace (NEGATIVE) Urine Nitrite Negative (NEGATIVE) Urine Bilirubin Negative (NEGATIVE) Urine Urobilinogen Normalmg/dL (NORMAL) Urine Leukocyte Esterase Negative (NEGATIVE) Urine RBC 3-10/hpf (0-2) Urine WBC 0-5/hpf (0-5) Urine Epithelial Cells Occasional/hpf (NONE-MOD) Urine Crystals None seen (NONE SEEN) Urine Bacteria None/hpf (NONE-FEW) Urine Hyaline Casts 5/20/lpf (NONE) Urine Granular Casts Occasional (NONE SEEN) Urine Waxy Casts None seen (NONE SEEN) Urine Red Blood Cell Casts None seen (NONE SEEN) Urine White Blood Cell Casts None seen (NONE SEEN) Urine Mucus None seen (None Seen) Urine Trichomonas None seen (NONE SEEN) Urine Yeast None (NONE SEEN) Urinalysis Comment None Urine Culture Reflexed Not indicated Hold Urine Received (Received) Digoxin Level 1.2nG/mL (0.9-2.0) Test 03/09/16 05:47 White Blood Count 4.7th/mm3 (3.8-10.1) Red Blood Count 3.26mil/mm3 (3.90-5.20) Hemoglobin 9.8g/dL (12.0-15.6) Hematocrit 31.2% (35.0-46.0) Mean Corpuscular Volume 95.7fL (81-100) Mean Corpuscular Hemoglobin 30.1pg (27.0-35.0) Mean Corpuscular Hemoglobin Concent 31.4% (32.0-37.0) Red Cell Distribution Width 14.5% (12.3-15.4) Platelet Count 137bil/L (150-400) Neutrophils (%) (Auto) 49.1% (40-74) Lymphocytes (%) (Auto) 31.3% (14-46) Monocytes (%) (Auto) 17.7% (4-12) Eosinophils (%) (Auto) 1.3% (0-5) Basophils (%) (Auto) 0.4% (0-3) Prothrombin Time 15.6sec (8.1-12.5) Prothromb Time International Ratio 1.45ratio Sodium Level 140mEq/L (134-144) Potassium Level 4.3mEq/L (3.5-5.2) Chloride Level 101mEq/L (97-108) Carbon Dioxide Level 28mmol/L (18-29) Blood Urea Nitrogen 44mg/dL (8-27) Creatinine 1.37mg/dL (0.57-1.00) Estimat Glomerular Filtration Rate 53mL/min (>59) Glucose Level 100mg/dL (60-99) Calcium Level 8.3mg/dL (8.5-10.1) Phosphorus Level 3.6mg/dL (2.5-4.9) Magnesium Level 2.4mg/dL (1.6-2.6) Total Bilirubin 0.4mg/dL (0.0-1.2) Aspartate Amino Transf (AST/SGOT) 26U/L (0-50) Alanine Aminotransferase (ALT/SGPT) 15U/L (0-32) Alkaline Phosphatase 42U/L (25-165) Total Protein 5.8g/dL (6.4-8.4) Albumin 3.6g/dL (3.4-5.0) Discharge Medications Discharge Medications Atorvastatin Calcium (Atorvastatin Calcium) 40 Mg Tablet 40 MG PO HS (Reported) Carvedilol (Carvedilol) 25 Mg Tablet 37.5 MG PO BID (Reported) Cholecalciferol (Vitamin D3) (Vitamin D3) 2,000 Unit Tablet 2,000 UNIT PO DAILY (Reported) Digoxin (Digoxin) 125 Mcg Tablet 125 MCG PO QAM (Reported) Furosemide (Furosemide) 40 Mg Tablet 40 MG PO 0830,1630 Prescribed by: MEGAN VUONG MD Levothyroxine (Levoxyl) 50 Mcg Tablet 50 MCG PO DAILY (Reported) Multivits-Min/FA/Lycopene/Lut (Centrum Silver Tablet) 1 Each Tablet 1 EACH PO DAILY (Reported) Oseltamivir Phosphate (Tamiflu) 30 Mg Capsule 30 MG PO BID Prescribed by: AURELIANO BLUE MD Ubidecarenone (Co Q-10) 400 Mg Capsule 400 MG PO DAILY (Reported) Warfarin Sodium (Warfarin Sodium) 3 Mg Tablet 4.5 MG PO ,,Sa,Nelson (Reported) Warfarin Sodium (Warfarin Sodium) 3 Mg Tablet 6 MG PO ,,Fr (Reported) Followup Plan Disposition: Patient is being discharged home in the care of her daughter who she lives with. Discharge Diet: Heart Healthy Discharge Activity: Limited until seen by PCP Follow-up Provider: Maeve Felix MD Follow-up with PCP in: 1 week (Patient needs referral for a Fine Needle Biopsy of a Right Thyroid Nodule) Provider: Jocelyn Lopez MD Follow-up in: 1 week Time spent Time spent on discharging this patient was greater than 35 minutes, over half of which was involved in counseling and coordination of care. Danny Blue MD Mar 10, 2016 00:19
--- NOTE | 2016-03-10 18:44 | NUR ---
Follow up phone for CHF patients Date: 03/10/2016 Time:[id number] Information Discussed: Daily wgt, CHARITO ASKEW... Importance of s/s of fluid overload. Pt didn't have a wgt from today, denies Tressa, states that she is feeling well and glad to be home. Questions patient had:
[2016-04-29] MEDS ORDERED: NITR0.4T SL (15:08)
[2016-04-29] MEDS ORDERED: SACU1TAB7 PO (15:08)
[2016-04-29] MEDS ORDERED: FRSM80T PO (15:08)
[2016-04-29] MEDS ORDERED: METO2.5T12 PO (15:08)
== END 2016-03-09 18:06 | disposition home or self-care (01) ==
LOC: SED 09:10 → MPC 14:35 → OBSVTOIN 14:35 → INTOOBSV 14:35
PROVIDERS: ADMIT Internal Medicine; ATTEND Internal Medicine
DX: J09.X2 Influenza due to identified novel influenza A virus with other respiratory manifestations (principal); J96.00 Acute respiratory failure, unspecified whether with hypoxia or hypercapnia; I13.0 Hypertensive heart and chronic kidney disease with heart failure and stage 1 through stage 4 chronic kidney disease, or unspecified chronic kidney disease; E78.5 Hyperlipidemia, unspecified; E03.9 Hypothyroidism, unspecified; I50.22 Chronic systolic (congestive) heart failure; N18.9 Chronic kidney disease, unspecified; I25.5 Ischemic cardiomyopathy; I34.8 Other nonrheumatic mitral valve disorders; I25.10 Atherosclerotic heart disease of native coronary artery without angina pectoris; Z95.810 Presence of automatic (implantable) cardiac defibrillator; Z79.01 Long term (current) use of anticoagulants; Z87.891 Personal history of nicotine dependence; Z66 Do not resuscitate

== ENCOUNTER 2016-05-02 00:29 | Day surgery (SDC) | payer MEDICARE, OTHER ==
[~2016-05-02] VITALS: Ht 167.6 cm; Wt 61.3 kg
[2016-05-02] VITALS (9 sets, daily range): BP systolic 94–111; BP diastolic 34–50; PULSE 71–77; RESP 12–18; O2SAT 93–100
[~2016-05-02 00:29] MED LIST changes: +ATOR40TA69 PO; -DIGO125T73 PO; -EZET1TAB16 PO; +FRSM80T PO; -FURO40TA4 PO; -LISI40TA PO; +METO2.5T12 PO; +NITR0.4T SL; +SACU1TAB7 PO; -SPIR25TA PO
[2016-05-02] MEDS ORDERED: Propofol 10,000 mCg/mL 20 mL Inj ONE (00:30)
[2016-05-02] MEDS ORDERED: fentaNYL-PF 50 mCg/mL 2 mL Inj ONE (00:30)
[2016-05-02] MEDS ORDERED: Ketamine 10 mg/mL 20 mL Inj ONE (00:30)
[2016-05-02] MEDS ORDERED: Lactated Ringer's 1,000 ML IV SCH (05:00)
[2016-05-02] MEDS ORDERED: 0.9% Sodium Chloride 1,000 ML ONE (09:56)
[2016-05-02 10:34] LABS: BASOPHILS % (AUTO) 0.3 % (0-3); EOSINOPHILS % (AUTO) 1.8 % (0-5); MONOCYTES % (AUTO) 7.7 % (4-12); Mean Corpuscular Hemoglobin 30.5 pg (27.0-35.0); Mean Corpuscular Volume 93.2 fL (81-100); NEUTROPHILS % (AUTO) 78.3 % (40-74); Platelet Count 177 bil/L (150-400)
[2016-05-02] MEDS ORDERED: DIGO0.25 PO (10:56)
--- NOTE | 2016-05-02 11:02 | PCM.HPANE ---
Patient Data Surgeon Admitting Provider: Attending Provider:Jocelyn Lopez MD Primary Care Physician:Yeni Montes Other Provider:Iris Steele Anesthesia Reason for Visit Nonrheumatic Mitral (Valve) Insufficiency Ht/WT & BMI Height (Feet): 5 Height (Inches): 6.00 Weight (Kilograms): 61.300 Body Mass Index 21.72 Allergies Coded Allergies: No Known Allergies (Verified Allergy, Unknown, 05/02/16) Past Anesthesia History Anesthesia History: Denies:: Anesthesia Reactions Diabetes History Hx Diabetes?: No MRSA MRSA: No Medications Reported Medications Digoxin 0.25 Mg/5 Ml [id number] Mg PO DAILY 30 Days Ref 0 05/02/16 Sacubitril/Valsartan (Entresto 49 mg-51 mg Tablet)49 Mg-51 Mg Tablet1 Each PO BID 04/29/16 Nitroglycerin SL (Nitrostat)0.4 Mg Tab.subl0.4 Mg SL Q5MIN PRN For Chest Pain # 1 BOTTLE 04/29/16 Metolazone 2.5 Mg Tablet2.5 Mg PO STEIN and #30 TABLET 04/29/16 Furosemide 80 Mg Tab80 Mg PO BID 30 Days Ref 0 04/29/16 Atorvastatin Calcium 40 Mg Hxcyul00 Mg PO HS Ref 0 03/06/16 Ubidecarenone (Co Q-10)400 Mg Eviwmlj459 Mg PO DAILY 07/26/15 Multivits-Min/FA/Lycopene/Lut (Centrum Silver Tablet)1 Each Tablet1 Each PO DAILY 03/20/15 Warfarin Sodium 3 Mg Tablet6 Mg PO Mo,We,Fr 03/20/15 Cholecalciferol (Vitamin D3) (Vitamin D3)2,000 Unit Tablet2,000 Unit PO DAILY 06/15/14 Carvedilol 25 Mg Uzixlt31.5 Mg PO BID 06/15/14 Warfarin Sodium 3 Mg Tablet4.5 Mg PO ,,Sa,Stein 06/15/14 Levothyroxine (Levoxyl)50 Mcg Dhabic67 Mcg PO DAILY 07/04/13 Discontinued Reported Medications Digoxin 125 Mcg Nhlwvy555 Mcg PO QAM 06/15/14 Discontinued Scripts Oseltamivir Phosphate (Tamiflu)30 Mg Euunadu31 Mg PO BID #10 CAPSULE Prov:Danny Blue MD 03/09/16 Furosemide 40 Mg Mwmwha97 Mg PO 0830,1630 #30 TABLET Prov:Venu Russ MD 08/12/15 History History of ENT Problems?: Yes HEENT History: Positive for:: Cataracts (removed) Denies:: Dysphagia Sinus Problem Other HEENT Pertinent History: Dentures Hx of Heart Problems?: Yes Cardiovascular History: Positive for:: Cardiac Surgery (AICD/Pacer) Congestive Heart Failure Heart Murmur Hypertension Irregular Heartbeat (A-Fib) Pacemaker Denies:: Chest Pain Edema Peripheral Vascular Thrombophlebitis Hx of Respiratory Problem?: Yes Respiratory History: Positive for:: Dyspnea Pneumonia Denies:: Asthma COPD Chest Surgery Emphysema Hemoptysis Tuberculosis Hx Neurologic Problems?: Yes Neurological History: Positive for:: Dizziness (This last week) Denies:: Alzheimer's Disease CVA Dementia Headaches Parkinson's Disease Seizures Hx of GI Problems?: No Gastrointestinal History: Denies:: Diverticulitis Gastroesphageal Reflux Gastrointestinal Bleeding Heartburn Hepatitis Hiatal Hernia Rectal Bleeding Hx of Problems?: Yes Genitourinary History: Positive for:: Urinary Tract Infection Denies:: HX of Hemodialysis Kidney Stones HX of Peritoneal Dialysis: No Female Hx: Denies:: Currently Endometriosis Pelvic Inflammatory Problems with Breasts? Hx Musculoskeletal Problems?: Yes Musculoskeletal History: Denies:: Back Injury Joint Replacement Musculoskeletal Trauma Hx of Psycho/Social Problems?: No Psycho Social History: Denies:: Anxiety Bipolar Disorder Hx Depression Suicide Attempt Hx Surgeries?: Yes (AICD placement, tonsillectomy) Hx Any Other Health Problems?: No Other History: Positive for:: Endocrine Disease Hospitalization (for CHF) Thyroid Disease Denies:: Cancer History Blood Transfusions: Positive for:: Accept Blood Products? Blood Transfusions Denies:: Blood Transfuse Reaction Hx Diabetes: No Hx Alcohol Use: YesHx Substance Use: No Smoking Status: Former Smoker Have You Smoked inLast 12 mo: No Stop/Bang Risk Assessment Category Category 1A: Patient has history of documented sleep apnea, and HAS NOT received any narcotic, sedative or anesthesia administration during this stay. Category 1B: Patient has history of documented sleep apnea, and HAS received any narcotic , sedative or anesthesia administration during this stay Category 2: Patient has SUSPECTED Obstructive Sleep Apnea, and HAS received any narcotic , sedative or anesthesia administration during this stay. Category 3: Patient has SUSPECTED Obstructive Sleep Apnea and HAS NOT received narcotic, sedative or anesthesia administration during this stay. Category 4: Outpatient in Procedural Areas with known sleep apnea or who screen positive for High Risk via the STOP/BANG questionnaire. Exam Exam Vital Signs Vital Signs Date Time Temp Pulse Resp B/P Pulse Ox O2 Delivery O2 Flow Rate FiO2 05/02/16 10:35 36.6 73 12 98/45 96 Room Air General Appearance: Alert, Oriented X3, Cooperative HEENT/AIRWAY: MP 2 Lungs: Normal Air Movement Heart: Exam Unremarkable Meds/Labs/Diagnostics Admission Meds Current Medications Lidocaine HCl 15 ml 15 ml STK-MED ONCE .ROUTE Last administered on 05/02/16 10: 58; Start 05/02/16 at 09:56; Stop 05/02/16 at 09:57; Status DC Sodium Chloride (Normal Saline) 1,000 ml @ ud STK-MED ONCE .ROUTE Last administered on 05/02/16 10:58; Start 05/02/16 at 09:56; Stop 05/02/16 at 09:57; Status DC Labs Test 05/02/16 10:25 White Blood Count 9.6th/mm3 (3.8-10.1) Red Blood Count 3.80mil/mm3 (3.90-5.20) Hemoglobin 11.6g/dL (12.0-15.6) Hematocrit 35.4% (35.0-46.0) Mean Corpuscular Volume 93.2fL (81-100) Mean Corpuscular Hemoglobin 30.5pg (27.0-35.0) Mean Corpuscular Hemoglobin Concent 32.8% (32.0-37.0) Red Cell Distribution Width 15.0% (12.3-15.4) Platelet Count 177bil/L (150-400) Neutrophils (%) (Auto) 78.3% (40-74) Lymphocytes (%) (Auto) 11.8% (14-46) Monocytes (%) (Auto) 7.7% (4-12) Eosinophils (%) (Auto) 1.8% (0-5) Basophils (%) (Auto) 0.3% (0-3) Plan Impression Patient chart reviewed, patient interviewed and anesthestic plan with risks, benefits, and alternatives discussed, and informed consent obtained. ASA Physical Status: ASA3 Severe Disease Anesthetic Plan: GA Bene/Risks/Altern/Consents: Yes HP Complete Prior to Induction: Yes Ghassan Mendez MD May 02, 2016 11:02
--- NOTE | 2016-05-02 11:07 | NUR ---
Admit OLGA LIDIA Admitted to [facility] at 1000. VSS. Tele SR with PVCs. Denies pain. See EMR for info and assessment. IV started and labs sent. INR 1.8 by fingerstick. Procedure and recovery reviewed. Pt. and family verbalizes understanding. Daughter states pt. has not been herself, mentally fuzzy and weaker with increased dizziness. Anesthesia notified. Awaiting Dr. Hill who saw pt. earlier to begin.
[2016-05-02] MEDS ORDERED: DIGO125T73 PO (11:55)
--- NOTE | 2016-05-02 13:28 | NUR ---
Procedure/Recovery/Discharge Procedural care per Anesthesia. See their documentation. VS monitored per protocol and back to normal by 1230 though pt. still sleepy. By 1300 more awake with strong cough and managing secretions. Assisted to sit. Denied dizziness. No postural drop sitting. Discharge instructions reviewed with daughter/skin care consultant and verbalizes understanding. See Sheets. IV discontinued intact. Discharged via w/c (as she came in) with family and all belongings in no distress at 1320.
--- NOTE | 2016-05-02 18:26 | DRSVH ---
[facility] [address] [place] [address] Echocardiogram Report Name: MELISSA HENDRICKSON te: 05/02/2016 Height: 68 in Hospital Exam Location: [facility] Weight: 140 lb Gender: Female BSA: 1.8 m2 : 1935 Age: 81 yrs BP: 101/39 mmHg Reason For Study: Mitral Valve- Regurgitation Ordering Physician: Performed By: Laureen Glynn Interpretation Summary The left ventricle is severely dilated. The ejection fraction is estimated to be 20-25%. There is a pacemaker lead in the right ventricle. The left atrium is severely dilated. No thrombus is detected in the left atrial appendage. There is no Doppler evidence for an interatrial shunt. There is mild to moderate mitral annular calcification. Redundant elongated chordae are noted. The mitral valve leaflets appear mildly thickened. There appears to be partial prolapse of one of the scallop of posterior mitral leaflet.The mitral valve annulus is dilated. The posterior leaflet is tethered. No obvious flail leaflet. No flow reversal noted in pulmonary veins. There is moderate to severe mitral regurgitation.LVIDs: 6.3 cm. There is moderate aortic regurgitation. Moderate atherosclerotic plaque(s) in the aortic arch. Procedure: Informed consent for Transesophageal Echocardiogram, and use of a contrast agent as needed, was obtained prior to the procedure. The patient was brought to the [facility] in a fasting state. An intravenous line was placed. A topical anesthetic agent was used for oropharangeal anesthesia. A bite block was inserted. Sedation was managed by anesthesiologist; see anesthesiology notes for details. A multifrequency, multiplane transesopheageal echocardiographic endoscope was inserted and manipulated in the standard fashion to achieve multiplane views. The transesophageal probe was passed without difficulty. The patient's vital signs, including blood pressure, heart rate, pulse oximetry and cardiac rhythm were monitored throughout the procedure and remained stable. A 2D transesophageal echocardiogram with spectral and color flow Doppler was performed. The patient tolerated the procedure well without evidence of orophangeal or esophageal trauma. Contrast injection with agitated saline was performed. Additional imaging was obtained transthoracically to assess LV dimensions. The usual views were obtained; basal, mid-esophageal, transgastric and aortic views. The patient was in normal sinus rhythm during the exam. The patient had frequent PVCs during the exam. The patient had a bundle branch block rhythm during the exam. There were no complications. Left Ventricle: The left ventricle is severely dilated. There is normal left ventricular wall thickness. A false chord is noted (normal variant). There is no thrombus. The ejection fraction is estimated to be 20-25%. There is moderate global hypokinesis of the left ventricle. There is basal inferior wall akinesis. There is mid inferoseptal wall akinesis. Right Ventricle: There is a pacemaker lead in the right ventricle. The right ventricle is grossly normal size. The right ventricular systolic function is normal. Atria: No thrombus is detected in the left atrial appendage. The left atrium is severely dilated. The interatrial septum is intact with no evidence for an atrial septal defect. There is no Doppler evidence for an interatrial shunt. Injection of contrast documented no interatrial shunt. The interatrial septum bows toward right atrium consistent with elevated left atrial pressure. Mitral Valve: The mitral valve leaflets are mildly calcified. The mitral valve chordae are thickened and/or calcified. The mitral valve annulus is dilated. The posterior leaflet is tethered. There is mild to moderate mitral annular calcification. The mitral valve leaflets appear mildly thickened, but open well. Redundant elongated chordae are noted. There is moderate to severe mitral regurgitation. Flow reversal noted in pulmonary veins consistent with significant mitral regurgitation. Aortic Valve: The aortic valve is trileaflet. The aortic valve is slightly calcified. There is no aortic valve stenosis. There is moderate aortic regurgitation. Tricuspid Valve: The tricuspid valve is normal. There is trace tricuspid regurgitation. Pulmonic Valve: The pulmonic valve is normal in structure and function. There is trace pulmonic regurgitation. Great Vessels: Moderate atherosclerotic plaque(s) in the aortic arch. MMode/2D Measurements & Calculations IVSd: 0.87 cm LVIDd FS LV mensah. diameter/BSA LVPWd: 0.79 cm : 7.6 cm : 16.% (cm/m^2): 4.3 LVIDs : 6.3 cm LV sys. diameter/BSA (cm/m^2): 3.6 Doppler Measurements & Calculations MR ERO: 0.21 cm MR PISA radius: 0.70 cm Reading Physician:OSVALDO
== END 2016-05-02 23:59 | disposition home or self-care (01) ==
LOC: SOUO 00:29
PROVIDERS: ATTEND Internal Medicine Cardiovascular Disease
DX: I34.0 Nonrheumatic mitral (valve) insufficiency (principal); I51.7 Cardiomegaly; I50.42 Chronic combined systolic (congestive) and diastolic (congestive) heart failure; I25.5 Ischemic cardiomyopathy; Z95.810 Presence of automatic (implantable) cardiac defibrillator; I12.9 Hypertensive chronic kidney disease with stage 1 through stage 4 chronic kidney disease, or unspecified chronic kidney disease; N18.4 Chronic kidney disease, stage 4 (severe)
CPT/HCPCS: 36415; 80048; 85025; 93005; C8925; J2250; J3010; J7030

== ENCOUNTER 2016-05-03 20:36 | Emergency (ER) | payer MEDICARE, OTHER ==
[~2016-05-03] VITALS: Ht 167.6 cm; Wt 61.0 kg
[~2016-05-03 20:36] MED LIST changes: +DIGO125T73 PO; -METO2.5T12 PO
[2016-05-03] MEDS ORDERED: 0.9% Sodium Chloride 1,000 ML IV ONE ×2 (20:37→21:45)
--- NOTE | 2016-05-03 20:37 | ED.REPORT ---
HPI-Neurologic Deficit Date of Service May 03, 2016 ED Provider: Clemente Isaacs DO A 81 year old female on Warfarin with a history of ischemic cardiomyopathy with systolic heart failure, CAD, hypertension, pacemaker, and CHF is brought to the ED via EMS due to unresponsiveness and suspected stroke. The pt ate a meal two hours ago and went to sleep. 1.5 hours later, the pt's family was unable to wake her and she was entirely unresponsive. Paramedics found the pt pale, diaphoretic, and unable to security director with an O2 sat of 85%, resting heart rate of 70 , blood sugar of 128, and blood pressure of 84/48. The pt began to improve somewhat en route. She was able to security director with both hands and became more alert. Pt's family reports that the pt began to act abnormally five days ago, described as being dizzy and disoriented, and displayed motor difficulties beginning four days ago. The family believed that the symptoms were related to a recently diagnosed leak in her heart valve. As a result, the pt was brought to [facility] yesterday for a valve study. The pt has not endured trauma to the head as far as her family is aware. Nursing Notes Stated Complaint: STROKE Chief Complaint: Neuro Symptoms/ Deficits Nursing Notes Reviewed: Yes Allergies: Coded Allergies: No Known Allergies (Verified Allergy, Unknown, 05/02/16) Scheduled Atorvastatin Calcium (Atorvastatin Calcium) 40 Mg Tablet 40 MG PO HS Carvedilol (Carvedilol) 25 Mg Tablet 37.5 MG PO BID Cholecalciferol (Vitamin D3) (Vitamin D3) 2,000 Unit Tablet 2,000 UNIT PO DAILY Digoxin (Digoxin) 125 Mcg Tablet 125 MCG PO Every other day Furosemide (Furosemide) 80 Mg Tab 40 MG PO BID Levothyroxine (Levoxyl) 50 Mcg Tablet 50 MCG PO DAILY Multivits-Min/FA/Lycopene/Lut (Centrum Silver Tablet) 1 Each Tablet 1 EACH PO DAILY Sacubitril/Valsartan (Entresto 49 mg-51 mg Tablet) 49 Mg-51 Mg Tablet 1 EACH PO BID Ubidecarenone (Co Q-10) 400 Mg Capsule 400 MG PO DAILY Warfarin Sodium (Warfarin Sodium) 3 Mg Tablet 4.5 MG PO ,,Sa,Nelson Warfarin Sodium (Warfarin Sodium) 3 Mg Tablet 6 MG PO Mo,We,Fr Scheduled PRN Nitroglycerin SL (Nitrostat) 0.4 Mg Tab.subl 0.4 MG SL Q5MIN PRN PRN For Chest Pain General Time Seen by Provider: 20:37 Chief Complaint Other (Unresponsive) Hx Obtained From: Patient, Other family..., EMS Arrived By: Ambulance Sudden in Onset?: Yes Onset Occurred: 1 - 4 hours ago Symptom Duration: Since onset Progression Since Onset: Gradually improving Recent Healthcare: No recent hospitalization, Recent doctor visit Similar Sx Previous: No Past Medical History Past Medical History Ischemic cardiomyopathy with systolic heart failure Reports: Congestive heart failure, Coronary artery disease, Hypertension Past Surgical History Reports: Pacemaker insertion Smoking History Former Smoker Social History Alcohol Use: 1-3 per day Drug Use: Denies drug use Other Social History: Lives with children Ambulatory Status Independent Review of Systems Unable to Obtain ROS Patient condition Physical Exam Initial Vital Signs Vital Signs (First) Date Time Temp Pulse Resp B/P Pulse Ox O2 Delivery O2 Flow Rate FiO2 05/03/16 20:40 36.4 76 18 133/111 97 Nasal Cannula 4 Initial VS: Reviewed General/Constitutional: Awake, Alert obviously confused Head / Eyes: Atraumatic, Normocephalic, PERRL, EOMI pupils 3mm bilaterally Respiratory / Chest: Atraumatic, Breath sounds NL, Breath sounds = bilat, No respiratory distress Cardiovascular: Heart rate NL, Regular rhythm, Heart sounds NL Neurologic: Speech NL right arm weakness right leg drift, hit bed no facial asymmetry not oriented to place or time ENT: Atraumatic, Airway patent, Mucous membranes moist Neck: Atraumatic, Supple, Full range of motion Abdomen: Atraumatic, Soft, Non-tender Back: Atraumatic, Full range of motion Upper Extremity / MS: Atraumatic Lower Extremity / Pelvis / MS: Atraumatic Skin: Atraumatic, Color NL, No rash, Warm, Dry Psychiatric: Affect NL Interpretation & Diagnostics Lab Results Interpretation Result Diagram: 05/03/16204805/03/162048 Test 05/03/16 20:49 White Blood Count 8.0th/mm3 (3.8-10.1) Red Blood Count 3.43mil/mm3 (3.90-5.20) Hemoglobin 10.3g/dL (12.0-15.6) Hematocrit 32.4% (35.0-46.0) Mean Corpuscular Volume 94.5fL (81-100) Mean Corpuscular Hemoglobin 30.0pg (27.0-35.0) Mean Corpuscular Hemoglobin Concent 31.8% (32.0-37.0) Red Cell Distribution Width 15.0% (12.3-15.4) Platelet Count 162bil/L (150-400) Neutrophils (%) (Auto) 64.7% (40-74) Lymphocytes (%) (Auto) 20.5% (14-46) Monocytes (%) (Auto) 12.4% (4-12) Eosinophils (%) (Auto) 1.9% (0-5) Basophils (%) (Auto) 0.5% (0-3) Prothrombin Time 13.8sec (8.1-12.5) Prothromb Time International Ratio 1.28ratio Activated Partial Thromboplast Time 25.9sec (22.8-33.0) Sodium Level 140mEq/L (134-144) Potassium Level 3.8mEq/L (3.5-5.2) Chloride Level 97mEq/L (97-108) Carbon Dioxide Level 24mmol/L (18-29) Blood Urea Nitrogen 94mg/dL (8-27) Creatinine 2.15mg/dL (0.57-1.00) Estimat Glomerular Filtration Rate 32mL/min (>59) Glucose Level 165mg/dL (60-99) Calcium Level 9.6mg/dL (8.5-10.1) Total Bilirubin 0.7mg/dL (0.0-1.2) Aspartate Amino Transf (AST/SGOT) 20U/L (0-50) Alanine Aminotransferase (ALT/SGPT) 13U/L (0-32) Alkaline Phosphatase 50U/L (25-165) Troponin T 0.014ug/L (0.0-0.011) Total Protein 7.3g/dL (6.4-8.4) Albumin 4.4g/dL (3.4-5.0) Pulse Oximetry Interpretation Pulse Oximetry Interpretation: 97% on nasal cannula Pulse Oximetry: Pulse Ox normal Pulse Oximetry Interpretation: 99% on nasal cannula Pulse Oximetry: Pulse Ox normal ECG Interpretation ECG Interpretation: atrial-sensed ventricular-paced rhythm with a rate of 69 Time: 21:18 Interpreted by: ED physician CT Head Interpretation IMPRESSION: Large left subdural hemorrhage with mixed attenuation suggesting acute on chronic bleed. Associated mass effect and rightward midline shift measuring 1.3 cm. Findings are immediately and personally telephoned to Dr. Isaacs in the emergency department 2050 hours 05/03/16. Dictated by: Ronny Mas M.D. on 05/03/2016 at 20:46 Approved by: Ronny Mas M.D. on 05/03/2016 at 20:54 Interpretation / Wet Read by: Interpret - Radiologist Re-Eval/Medical Decision Med Decision/Clinical Course At 20 1:55 PM Olivia is doing well. Her blood pressures currently 105/45. Laboratory work shows that she is at least moderate to severely dehydrated. Her INR is 1.28. She is not a candidate for Kcentra. She has received IV vitamin K and ongoing fluid resuscitation. She remains awake and alert. She technically she has a Gio Coma Scale of 15. Her eyes are open. She is chatting and she will follow commands. She is clearly confused however. I do not feel that she needs emergent intubation at this time. I suspect that she has been bleeding for several days and she is tolerating this well. We have arranged for transfer to [facility] care of Dr. Tomlinson. We called airlift first. Due to the weather they are unable to fly. A stat transfer ground crew has been arranged for. Transfer is eminent Source of Hx: Old records Re-Evaluation/Progress #1: Time of Eval: 20:50 Re-Evaluation/Progress Note: Spoke with pt's family regarding pt's condition. Family understands the situation. Re-Evaluation/Progress #2: Time of Eval: 21:07 Re-Evaluation/Progress Note: Additional family members arrive, including power of cherry pitter. Pt condition and need for transfer for [facility] is further discussed. The pt's family understands and agrees with the plan. All questions are addressed at this time. Consultation #1: Call Returned at: 21:10 Stone Circular Sawyer: Agrees with plan Note: Spoke with [facility] regarding pt's case. Neurosurgeon will review images and [facility] will call back. Consultation #2: Call Returned at: 21:37 Note: Spoke with Dr. Selam Tomlinson, [facility], regarding pt's case. Pt's transfer is accepted. Counseled Regarding: Diagnosis, Lab results, Need for transfer Discharge & Departure Impression: Primary Impression: Subdural hemorrhage Disposition: Transfer, Acute Care Facility Discharge Condition All VS Reviewed: Yes Condition: Stable Referrals: Yeni Montes (PCP) Crit Care Except Billable Proc Time Spent: 75-104 minutes Scribe Attestation Portions of this note were transcribed by Lluvia Gonsales. I, Dr. Isaacs personally performed the history, physical exam and medical decision-making; I reviewed and confirmed the accuracy of the information in the transcribed note. Signed by: Alyssa Daniel, 05/03/2016 and 2144. copies to: Yeni Montes Todd P DO May 03, 2016 20:37 LLUVIA GONSALES May 03, 2016 20:57
[2016-05-03 20:40] VITALS: BP 133/111; PULSE 76; RESP 18; O2SAT 97
[2016-05-03 20:54] LABS: BASOPHILS % (AUTO) 0.5 % (0-3); EOSINOPHILS % (AUTO) 1.9 % (0-5); MONOCYTES % (AUTO) 12.4 % (4-12); Mean Corpuscular Volume 94.5 fL (81-100); NEUTROPHILS % (AUTO) 64.7 % (40-74); Platelet Count 162 bil/L (150-400)
--- NOTE | 2016-05-03 20:55 | DRSVH ---
PROCEDURE: CT BRAIN (TPA) ([id number]) INDICATIONS: right sided facial droop TECHNIQUE: Noncontrast 4.5 mm thick angled axial sections acquired from the foramen magnum to the vertex, with c oronal reformats. COMPARISON: None. FINDINGS: Image quality: Excellent. CSF spaces: Basal cisterns are patent. Brain: Large left frontal subdural hemorrhage, with mixed attenuation suggesting acute on chronic ble ed. Roughly, this measures 2.0 x 12.0 cm on axial image 17 series 2. There is associated mass effect and rightward midline shift measuring 1.3 cm. There is cerebral volume loss for age, with resultant ventricular and sulcal prominence. There are periventricular and deep white matter chronic small vessel ischemic changes. There is intracranial i nternal carotid artery atherosclerosis. Skull and face: Calvarium and visualized facial bones appear intact, without suspicious lesions. Sinuses: Visualized sinuses and mastoids are clear. IMPRESSION: Large left subdural hemorrhage with mixed attenuation suggesting acute on chronic bleed. Associated mass effect and rightward midline shift measuring 1.3 cm. Findings are immediately and personally telephoned to Dr. Isaacs in the emergency department 2050 05/03/16. Dictated by: Ronny Mas M.D. on 05/03/2016 at 20:46 Approved by: Ronny Mas M.D. on 05/03/2016 at 20:54
[2016-05-03 21:16] LABS: TROPONIN T 0.014 ug/L (0.0-0.011)
[2016-05-03 21:17] LABS: INR 1.28 ratio
[2016-05-03 21:25] VITALS: BP 104/36; PULSE 72; RESP 16; O2SAT 99
[2016-05-03] MEDS ORDERED: 0.9% Sodium Chloride 1,000 ML IV SCH (21:35)
[2016-05-03] MEDS ORDERED: Phytonadione (Adult) 5 MG in 0.9% Sodium Chloride-Pha MIX 50 ML IV PRN (21:35)
[2016-05-03] MEDS ORDERED: Phytonadione (Adult) 5 MG in 0.9% Sodium Chloride-Pha MIX 50 ML IV ONE (21:38)
[2016-05-03 22:21] VITALS: BP 86/29; PULSE 72; RESP 20; O2SAT 99
== END 2016-05-03 22:15 | disposition short-term general hospital (02) ==
LOC: SED 20:36
DX: I62.00 Nontraumatic subdural hemorrhage, unspecified (principal); E86.0 Dehydration; R40.2410 Glasgow coma scale score 13-15, unspecified time; I25.5 Ischemic cardiomyopathy; I50.20 Unspecified systolic (congestive) heart failure; I25.10 Atherosclerotic heart disease of native coronary artery without angina pectoris; I10 Essential (primary) hypertension; Z95.0 Presence of cardiac pacemaker; Z87.891 Personal history of nicotine dependence; Z79.01 Long term (current) use of anticoagulants
CPT/HCPCS: 70450; 80053; 82948; 84484; 85025; 85610; 85730; 93005; 96361; 96374; 99291; 99292; J3430; J7030

== ENCOUNTER 2016-05-21 06:32 | Observation (INO) | payer MEDICARE, OTHER ==
[~2016-05-21] VITALS: Ht 167.6 cm; Wt 62.7 kg
[2016-05-21] VITALS (10 sets, daily range): BP systolic 92–138; BP diastolic 46–80; PULSE 79–111; RESP 16–26; O2SAT 92–97
[2016-05-21] MEDS ORDERED: Albuterol-Ipratropium 3 mL Inhalation Solution ONE (06:48)
[2016-05-21] MEDS ORDERED: Furosemide 10 mg/mL 10 mL Inj IVPUSH ONE (06:50)
[2016-05-21] MEDS ORDERED: Nitroglycerin 2% 1 Gm Ointment TOPICAL SCH (06:50)
[2016-05-21 06:59] LABS: BASOPHILS % (AUTO) 0.4 % (0-3); EOSINOPHILS % (AUTO) 0.2 % (0-5); MONOCYTES % (AUTO) 8.3 % (4-12); Mean Corpuscular Hemoglobin 30.1 pg (27.0-35.0); Mean Corpuscular Volume 96.8 fL (81-100); NEUTROPHILS % (AUTO) 79.1 % (40-74); Platelet Count 396 bil/L (150-400)
--- NOTE | 2016-05-21 07:05 | ED.REPORT ---
HPI-Dyspnea / Wheezing Date of Service May 21, 2016 ED Provider: Robert Low MD Pt is an 81 y.o. female with an extensive medical hx including pacemaker, CHF, recent stroke, and HTN who presents to the ED via EMS from [facility] c/o worsening SOB onset yesterday evening. She denies chest pain and fever. Pt's daughter reports that pt had neurosurgery on May 04 at [facility] secondary to a hemorrhagic stroke, pt was discharged and moved to [facility] 1 week ago. During her hospitalization they had discontinued her Lasix and Warfarin, these were restarted on May 18. Daughter reports noticing bilateral lower extremity swelling since she was restarted on her medication. Nursing Notes Stated Complaint: SHORTNESS OF BREATH Chief Complaint: Respiratory Complaints Nursing Notes Reviewed: Yes Allergies: Coded Allergies: No Known Allergies (Verified Allergy, Unknown, 05/02/16) Scheduled Atorvastatin Calcium (Atorvastatin Calcium) 40 Mg Tablet 40 MG PO HS Carvedilol (Carvedilol) 25 Mg Tablet 37.5 MG PO BID Cholecalciferol (Vitamin D3) (Vitamin D3) 2,000 Unit Tablet 2,000 UNIT PO DAILY Digoxin (Digoxin) 125 Mcg Tablet 125 MCG PO Every other day Furosemide (Furosemide) 80 Mg Tab 40 MG PO BID Levothyroxine (Levoxyl) 50 Mcg Tablet 50 MCG PO DAILY Multivits-Min/FA/Lycopene/Lut (Centrum Silver Tablet) 1 Each Tablet 1 EACH PO DAILY Sacubitril/Valsartan (Entresto 49 mg-51 mg Tablet) 49 Mg-51 Mg Tablet 1 EACH PO BID Ubidecarenone (Co Q-10) 400 Mg Capsule 400 MG PO DAILY Warfarin Sodium (Warfarin Sodium) 3 Mg Tablet 4.5 MG PO ,,,Nelson Warfarin Sodium (Warfarin Sodium) 3 Mg Tablet 6 MG PO Mo,We,Fr Scheduled PRN Nitroglycerin SL (Nitrostat) 0.4 Mg Tab.subl 0.4 MG SL Q5MIN PRN PRN For Chest Pain General Time Seen by MD: 06:45 Chief Complaint Shortness of breath Hx Obtained From: Patient, Daughter Arrived By: Ambulance Sudden in Onset?: Yes Onset Occurred: Yesterday Symptom Duration: Since onset Location: : None Severity: Current: No pain currently Severity: Maximum: No pain Past Medical History Past Medical History 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 Del Valle Past Medical History Traumatic subdural hematoma early April Ischemic cardiomyopathy with systolic heart failure Thyroid mass Biventricular pacer Reports: Congestive heart failure, Coronary artery disease, Hyperlipidemia, Hypertension, Stroke Reports: Atrial fibrillation, Thyroid disease Past Surgical History Reports: Pacemaker insertion Smoking History Former Smoker Social History Alcohol Use: 1-3 per day Drug Use: Denies drug use Other Social History: Lives with children Ambulatory Status Independent Review of Systems Constitutional: Denies: Fever Respiratory: Reports: Shortness of breath Cardiovascular: Denies: Chest pain Skin: Reports Swelling (Bilateral lower extremities) Complete sys rev & neg: except as marked. Physical Exam Initial Vital Signs Vital Signs (First) Date Time Temp Pulse Resp B/P Pulse Ox O2 Delivery O2 Flow Rate FiO2 05/21/16 06:36 36.6 105 26 132/68 92 Nasal Cannula 4 05/21/16 07:03 24 Initial VS: Reviewed Head / Eyes: Atraumatic, Normocephalic Abdomen / GI: No distention Extremities: Vascular intact, Neuro intact Skin: Warm, Dry, No cyanosis Neurologic: Alert, Oriented, Nonfocal Psychiatric: Mood/affect normal, Behavior normal, Normal thought content General/Constitutional: Awake, Alert, Well developed, Well hydrated, Well nourished, Not toxic appearing Distress / Hydration: Positive: Distress mild Neck: Atraumatic Respiratory / Chest: Atraumatic Resp Distress / Stridor: Positive: Resp distress mild Rales / Rhonchi: Positive: Rales bilateral up to 1/3 (Dense) Cardiovascular: Heart rate NL, Regular rhythm, Heart sounds NL, Peripheral circulation NL No peripheral edema Interpretation & Diagnostics Lab Results Interpretation Result Diagram: 05/21/16 0639 05/21/16 0639 Test 05/21/16 06:39 05/21/16 09:08 White Blood Count 13.3th/mm3 (3.8-10.1) Red Blood Count 3.09mil/mm3 (3.90-5.20) Hemoglobin 9.3g/dL (12.0-15.6) Hematocrit 29.9% (35.0-46.0) Mean Corpuscular Volume 96.8fL (81-100) Mean Corpuscular Hemoglobin 30.1pg (27.0-35.0) Mean Corpuscular Hemoglobin Concent 31.1% (32.0-37.0) Red Cell Distribution Width 17.9% (12.3-15.4) Platelet Count 396bil/L (150-400) Neutrophils (%) (Auto) 79.1% (40-74) Lymphocytes (%) (Auto) 11.7% (14-46) Monocytes (%) (Auto) 8.3% (4-12) Eosinophils (%) (Auto) 0.2% (0-5) Basophils (%) (Auto) 0.4% (0-3) Sodium Level 135mEq/L (134-144) Potassium Level 5.0mEq/L (3.5-5.2) Chloride Level 99mEq/L (97-108) Carbon Dioxide Level 20mmol/L (18-29) Blood Urea Nitrogen 19mg/dL (8-27) Creatinine 1.22mg/dL (0.57-1.00) Estimat Glomerular Filtration Rate 61mL/min (>59) Glucose Level 164mg/dL (60-99) Calcium Level 8.9mg/dL (8.5-10.1) Total Bilirubin 0.8mg/dL (0.0-1.2) Aspartate Amino Transf (AST/SGOT) 26U/L (0-50) Alanine Aminotransferase (ALT/SGPT) 17U/L (0-32) Alkaline Phosphatase 78U/L (25-165) Troponin T 0.017ug/L (0.0-0.011) Pro-B-Type Natriuretic Peptide 01419fn/mL (0-738) Total Protein 6.5g/dL (6.4-8.4) Albumin 3.5g/dL (3.4-5.0) Urine Color Straw (YELLOW) Urine Appearance Clear (CLEAR,HAZY) Urine pH 6.0 (5.0-8.0) Urine Specific [place] 1.006 (1.003-1.035) Urine Protein Negativemg/dL (NEG,TRACE) Urine Glucose (UA) Negativemg/dL (NEGATIVE) Urine Ketones Negativemg/dL (NEGATIVE) Urine Occult Blood Negative (NEGATIVE) Urine Nitrite Negative (NEGATIVE) Urine Bilirubin Negative (NEGATIVE) Urine Urobilinogen Normalmg/dL (NORMAL) Urine Leukocyte Esterase Negative (NEGATIVE) Urine RBC 0-2/hpf (0-2) Urine WBC 0-5/hpf (0-5) Urine Epithelial Cells Few/hpf (NONE-MOD) Urine Crystals None seen (NONE SEEN) Urine Bacteria None/hpf (NONE-FEW) Urine Hyaline Casts None/lpf (NONE) Urine Granular Casts None seen (NONE SEEN) Urine Waxy Casts None seen (NONE SEEN) Urine Red Blood Cell Casts None seen (NONE SEEN) Urine White Blood Cell Casts None seen (NONE SEEN) Urine Mucus None seen (None Seen) Urine Trichomonas None seen (NONE SEEN) Urine Yeast None (NONE SEEN) Urinalysis Comment None Urine Culture Reflexed Not indicated ECG Interpretation Time: 06:42 Interpreted by: ED physician Rhythm / Conduction: Ventricular paced rhythm (rate of 99) X-Ray Chest Interpretation Chest Xray Interpretation: IMPRESSION: 1. Increased pulmonary edema with medial bibasilar atelectasis or consolidation. 2. Small right pleural effusion. 3. Enlargement of the heart compared to the prior study. This may be due to differences in technique versus a pericardial effusion. Recommend a repeat PA and lateral study when clinically feasible. Dictated by: Kartik Blank M.D. on 05/21/2016 at 8:52 Approved by: Kartik Blank M.D. on 05/21/2016 at 8:56 Re-Eval/Medical Decision Med Decision/Clinical Course Patient arrives with extreme respiratory distress. Immediately we applied nitroglycerin administered intravenous Lasix and applied BiPAP ventilatory assistance which brought about a profound improvement in the following 1-2 hours. Source of Hx: Old records Re-Evaluation/Progress : Time of Eval: 07:27 Re-Evaluation/Progress Note: Pt rechecked. Daughter is now present. Pt states breathing has improved. Rales in bilateral bases. Daughter states pt was released from [facility] 1 week ago after a hemorrhagic stroke, and began Warfarin and Lasix again yesterday. Consultation : Referral / Consult Name: Freeman Moran MD Consulted With: Hospitalist Call Returned at: 08:59 Recycle Coordinator: Will see patient, Agrees with eval, Agrees with plan, Accepts admit Note: Discussed pt condition, accepts admit. Counseled Regarding: Diagnosis, Lab results Discharge & Departure Impression: Primary Impression: CHF exacerbation Disposition: ADMITTED TO HOSPITAL Discharge Condition All VS Reviewed: Yes Condition: Improved Referrals: Yeni Montes (PCP) Crit Care Except Billable Proc Time Spent: 30-74 minutes Services Performed: Patient management by me, Time spent at bedside, Reviewing test results, Reviewing imaging, Discussing patient care, Documentation in record Scribe Attestation Portions of this note were transcribed by Stef Rivera. I, Dr. Low personally performed the history, physical exam and medical decision-making; I reviewed and confirmed the accuracy of the information in the transcribed note. Signed by: Alyssa Sifuentes, 05/21/16 and 09. copies to: Yeni Montes; Abraham Del Valle MD, Kirk H MD May 21, 2016 07:05 STEF RIVERA May 21, 2016 07:54
[2016-05-21 07:52] LABS: TROPONIN T 0.017 ug/L (0.0-0.011)
--- NOTE | 2016-05-21 09:02 | DRSVH ---
PROCEDURE: X-RAY CHEST ONE VIEW, PORTABLE ([id number]) INDICATIONS: chf TECHNIQUE: One view of the chest was acquired. COMPARISON: MERGED WITH [facility], CR, XR CHEST 2VW, 03/22/2016, 14:40. [facility], CR , XR CHEST 1VW (PORTABLE), 03/06/2016, 9:22. FINDINGS: Surgical changes and devices: Left chest wall AICD appears stable in position. Lungs and pleura: There is increased pulmonary edema bilaterally. There is mild blunting of right c ostophrenic angle compatible with a small pleural effusion. There are also increased medial retrocar diac bibasilar opacities systems with atelectasis or consolidation. Mediastinum: Heart size appears enlarged. Bones and chest wall: No suspicious bony lesions. Overlying soft tissues appear unremarkable. IMPRESSION: 1. Increased pulmonary edema with medial bibasilar atelectasis or consolidation. 2. Small right pleural effusion. 3. Enlargement of the heart compared to the prior study. This may be due to differences in techniqu e versus a pericardial effusion. Recommend a repeat PA and lateral study when clinically feasible. Dictated by: Kartik Blank M.D. on 05/21/2016 at 8:52 Approved by: Kartik Blank M.D. on 05/21/2016 at 8:56
[2016-05-21] MEDS ORDERED: MetoCLOpramide 5 mg/mL 2 mL Inj IVPUSH ONE (09:15)
[2016-05-21] MEDS ORDERED: Polyethylene Glycol (PEG) 17 Gm Powder PO PRN (09:25)
[2016-05-21] MEDS ORDERED: Alum-Mag Hydrox-Simeth 30 mL Suspension PO PRN (09:25)
[2016-05-21] MEDS ORDERED: Ondansetron 2 mg/mL 2 mL Inj IVPUSH PRN ×2 (09:25→09:30)
[2016-05-21 09:29] LABS: APPEARANCE,URINE CLEAR (CLEAR,HAZY); COLOR,URINE STRAW (YELLOW); OCCULT BLOOD,URINE NEGATIVE (NEGATIVE); UROBILINOGEN,URINE NORMAL (NORMAL)
--- NOTE | 2016-05-21 10:56 | NUR ---
Pt admitted to PCC at approx 1000hrs Pt admitted to PCC from the ER. She had been on bipap in the ER but has improved and arrived on O2 via NC at 3l with sats in the mid 90's. Pt states her breathing is much improved. VS are stable, skin is intact with no concerns. Daughter is at the bedside and is very helpful.
--- NOTE | 2016-05-21 11:14 | PCM.HPMED ---
Subjective Date of Service May 21, 2016 Primary Provider: Admitting Physician: Freeman Moran MD Primary Care Physician: Yeni Montes Attending Physician: Freeman Moran MD Chief Complaint: Shortness of breath Lower extremity edema History of Present Illness: Patient is a pleasant 81-year-old woman who presented to [facility] emergency department from [facility]. Experiencing progressive shortness of breath, lower cavity edema, and reported weight gain. She has a significant medical history for congestive heart failure, hemorrhagic CVA status [facility] to 05/13/2016. She has ICD in place for ventricular tachycardia, history of NSTEMI, coronary artery disease, chronic anemia hyperlipidemia, paroxysmal atrial fibrillation, cardiomyopathy, and hypothyroidism. Daughter states that [facility] her Lasix was discontinued, she was transferred to [facility] wear until 2 days ago she received no Lasix and the only restarted her on 20 mg daily. Additionally daughter conveys that she received a call stating that her ICD fired twice in the last week and it was requested that her device be interrogated for evaluation. In the emergency department she was found to have: Temperature 36.6, heart rate 105, respiratory rate 26, blood pressure 132/68, pulse ox 92 on 4 L nasal cannula. White blood cells 13.3, hemoglobin 9.3, platelets 396, neutrophils 79.1%. Electrolytes were normal, creatinine 1.22, glucose 164, troponin T was 0.017 proBNP was 34.7k. Chest x-ray was read as having decreased pulmonary edema. Bibasilar atelectasis or consolidation, small right pleural effusion, enlargement of the heart compared to previous study. She received 80 mg of IV furosemide, which produce significant diuresis. On evaluation at admission she states she is feeling subjectively better, easier to breathe, no lightheadedness, dizziness, no chest pain, mild occasional cough , no dysuria, swelling in her lower extremities has reduced, no rashes, no headache, no changes in vision. Review of Systems: Comprehensive ROS negative unless stated in history of present illness Allergies Coded Allergies: No Known Allergies (Verified Allergy, Unknown, 05/02/16) PMH Acute on chronic subdural hematoma Ventricular tachycardia with ICD NSTEMI Coronary artery disease Anemia Thyroid goiter Adrenal incidentaloma Hyperlipidemia Paroxysmal atrial fibrillation Nonischemic cardiomyopathy Hypothyroidism Surgical History ICD placement Craniotomy for hematoma evacuation Family History heart attack in father at 62 years of age. Social History Occupation: very retired Hx Alcohol Use: Yes Alcoholic Drinks Per Day: rarely Hx Substance Use: No Hx Tobacco Use: Yes (smoked a pack a day for 30 yrs) Smoking Status: Former Smoker Exam Vital Signs Vital Sign - Last Date Time Temp Pulse Resp B/P Pulse Ox O2 Delivery O2 Flow Rate FiO2 05/21/16 10:48 91 05/21/16 10:12 36.8 20 106/46 94 Nasal Cannula 2 05/21/16 07:03 24 Exam General: Laying in bed, no apparent distress. HEENT: Normocephalic, sagittal surgical scar, extraocular muscles intact, mucous membranes moist, conjunctivae pink, neck is supple without adenopathy trachea midline. Cardiovascular: Regular rate and rhythm, systolic murmur heard at right upper sternal border, harsh systolic murmur at left midaxillary line PMI displaced laterally to midaxillary line, peripheral pulses 2/4 equal bilaterally Pulmonary: Bibasilar rales left greater than right. No wheezing, chest excursion equal bilaterally. Abdominal: Soft to palpation, bowel sounds present 4, no hepatosplenomegaly. Negative rebound. Extremities: Bilateral lower extremities mildly edematous, pitting, to the level of the ankle, nonpainful, nontender, no wounds or ulcers appreciated Neuro: Neurologically grossly intact, strength is equal bilaterally upper and lower extremities. MSK: able to move extremities on their own volition, strength 5 out of 5 equal bilaterally to upper and lower extremities. Lab and Diagnostics Result Diagram: 05/21/16 0639 05/21/16 0639 X-Rays, CTs and MRIs Portable chest x-ray performed 05/21/2016 IMPRESSION: 1. Increased pulmonary edema with medial bibasilar atelectasis or consolidation. 2. Small right pleural effusion. 3. Enlargement of the heart compared to the prior study. This may be due to differences in technique versus a pericardial effusion. Recommend a repeat PA and lateral study when clinically feasible. Dictated by: Kartik Blank M.D. on 05/21/2016 at 8:52 12-lead ECG Atrial sensed ventricular paced complexes Rate 99, AZ interval 54, QTC 502, Assessment & Plan Patient is a pleasant 81-year-old woman with history of cardiomyopathy, hemorrhagic CVA, ICD in place, paroxysmal atrial fibrillation, and congestive heart failure [facility] for [facility]oma evacuation, released to [facility] for rehabilitation, and has had progressive shortness of breath and lower extremity edema. Believed to be in CHF exacerbation secondary to fluid retention, received IV furosemide in the emergency department and symptoms are resolving. #1 Acute on chronic congestive heart failure exacerbation, present on admission , improving [place] to be most likely due to discontinuation of Lasix from her recent hospitalization, and subtherapeutic doses in the subsequent days leading to admission. IV Lasix given in emergency department result symptoms, patient urinating appropriately BNP in emergency department was severely elevated, and reflects BNP value performed yesterday as an outpatient. Echocardiogram to reassess cardiac function Cardiology consultation given her significant cardiac history and concern for sub-optimal treatment. We will transition to oral furosemide, 40 mg daily #2 Acute on chronic Elevated troponin, present on admission, evaluation ongoing Most likely due to demand ischemia given increased fluid status. We will trend troponin Place patient on telemetry and monitor #3 Acute Leukocytosis with left shift, present on admission evaluation ongoing Remains afebrile, tachycardia and tachypnea resolved with Lasix Leukocyte margination secondary to physiologic stress secondary to above- mentioned conditions Do not believe she has an infection, Urinalysis negative. we will continue to monitor repeat CBC tomorrow #4 Chronic anemia, present on admission, stable Review of outpatient records shows patient actually have increased hemoglobin on admission from baseline. We will continue to monitor CBC every morning #5 Chronic kidney disease, present on admission, stable Patient's creatinine appears to be at baseline as well as her estimated GFR. We will continue to monitor BMP every morning #6 Medication reconciliation to be performed. Discrepancies [facility], prior admission, and patient statement what she receives at [facility]. Chronic stable conditions Paroxysmal atrial fibrillation -Rate appears to be controlled secondary to ICD, anticoagulation to be evaluated with medication reconciliation. Hypothyroidism Hyperlipidemia -We will continue home medications at respective doses once medication reconciliation has been performed Patient admitted to inpatient status, anticipation of greater than 2 minutes length of stay due to severity of illness, complexity of treatment plan, and risk of adverse event. . Pain Evaluation: Adequate Pain Control GI Prophylaxis: Not indicated VTE Prophylaxis Indicated: Contraindicated VTE Prophylaxis: SCDs Resuscitation Status: DNR/DNI:Do Not Resuscitate/Intubate Attending Statement The patient was seen and examined together with Dr. Evans on 05/21/2016 and I agree with the history, exam and plan as outlined in the note above. . copies to: Yeni Montes Noah M DO May 21, 2016 11:14 Freeman Moran MD May 21, 2016 18:59
[2016-05-21] MEDS ORDERED: AMIO200T PO (13:47)
[2016-05-21] MEDS ORDERED: WARF3TAB PO (13:47)
[2016-05-21] MEDS ORDERED: METO-274 PO (13:49)
--- NOTE | 2016-05-21 15:12 | DRSVH ---
[facility] [address] [place] [address] Echocardiogram Report Name: MELISSA HENDRICKSON te: 05/21/2016 Height: 67 in Hospital Exam Location: [facility] Weight: 130 lb Gender: Female BSA: 1.7 m2 : 1935 Age: 81 yrs BP: 106/46 m mHg Reason For Study: Congestive Heart Failure Ordering Physician: HOSPITALIST [facility] Performed By: Kaleigh Cameron Referring Physician: Yeni Montes Interpretation Summary Normal sinus rhythm. Severely dilated LV; normal wall thickness. There is severely reduced LV systolic function, estimated at 20-25%. There are focal wall motion abnormalities with mid-inferior, distal inferior, mid-inferolateral, basal inferior akinesis. All other segments are hypokinetic. Stage II diastolic dysfunction. Severe LA enlargement and mild RA enlargement. There is mild mitral annular calcification. Anterior mitral valve leaflet is normal; posterior leaflet is tethered; there is severe eccentric posterolaterally directed MR in the setting of annular dilation and tethered posterior leaflet. Aortic valve leaflets are normal; there is moderate central AI. Tricuspid valve leaflets are normal; there is moderate central TR in the setting of pacing lead traversing the tricuspid valve. Estimated PA systolic pressure is 72-77 mm Hg assuming RA pressure of 15-20 mm Hg. There is moderate right pleural effusion. There is incidentally noted thyroid mass on suprasternal views measuring about 4.8 cm diameter. Compared to prior study performed 03/08/2016. LV is visually less dynamic. PA systolic pressure is up from 42 mm Hg to 72-77 mm Hg. This most likely reflects rising LV EDP with associated increase in PASP. Procedure: There has been no significant change since the previous study. The study quality was technically good. Comparison is made with the echocardiogram of 05-02-16. The patient has a paced rhythm. Left Ventricle: The left ventricle is markedly dilated. There is normal left ventricular wall thickness. There are focal wall motion abnormalities with mid-inferior, distal inferior, mid-inferolateral, basal inferior akinesis. All other segments are hypokinetic. The ejection fraction is estimated to be 20-25%. Right Ventricle: The right ventricle is mildly dilated. There is a pacemaker lead in the right ventricle. Right ventricular systolic function is mildly reduced. Atria: The left atrium is severely dilated. The right atrium is mildly dilated. There is a catheter/pacemaker lead seen in the right atrium. The interatrial septum is intact with no evidence for an atrial septal defect. Mitral Valve: The mitral valve is grossly normal. There is severe mitral regurgitation. Aortic Valve: The aortic valve is trileaflet. The aortic valve opens well. There is mild aortic regurgitation. Tricuspid Valve: The tricuspid valve leaflets are thin and pliable. There is mild tricuspid regurgitation. The right ventricular systolic pressure is estimated at 72 mmHg assuming a right atrial pressure of 15 mm Hg. Pulmonic Valve: The pulmonic valve is not well seen, but is grossly normal. There is mild to moderate pulmonic regurgitation. Great Vessels: The aortic root is normal size. The dimensions of the ascending aorta are normal. The IVC is dilated (diameter is greater than 2.1 cm) and it collapses less than 50% with a sniff. This suggests a high right atrial pressure of 15 mm Hg. Pericardium/ Pleura There is no pericardial effusion. There is a moderate right-sided pleural effusion. MMode/2D Measurements & Calculations LVIDd: 7.1 cm LA dimension: 5.9 cm RA long axis: 4.9 cm Ao root diam LVIDs: 6.3 cm FS: 10.4 % LA A2 area: 36.7 cm RA area: 19.4 cm Aortic Jxn IVSd: 1.1 cm LA A4 area: 40.1 cm RA vol: 65.2 ml LVPWd: 0.69 cm LA length (vol): 6.9 cm RA : 38.7 ml/m asc Aorta LA vol: 182.3 ml RVDd major: 5.4 cm Diam: 3.1 cm LA vol index : 108.2 ml/m2 IVC diam: 2.5 cm EDV(MOD-sp2) LV mensah. diameter/BSA LV sys. diameter/BSA RVD1 (basal) : 318.1 ml (cm/m^2): 4.2 (cm/m^2): 3.8 Doppler Measurements & Calculations Ao V2 max MV E max zain MV E/A: 1.1 TR max zain : 174.5 cm/sec : 114.2 cm/sec Med Peak E' Zain : 377.6 cm/sec Ao max PG MV A max zain TR max PG : 12.2 mmHg : 105.3 cm/sec E/E' med: 31.9 : 57.0 mmHg Ao mean PG MV P1/2t: 53.8 msec Lat Peak E' Zain PA V2 max : 81.9 cm/sec AI P1/2t MR ERO: 0.31 cm2 E/E' lat: 20.5 PA mean PG : 398.9 msec E/e' average AI dec slope PA Accel Time MV A dur: 0.16 sec : 0.07 sec : 280.5 cm/s2c MV dec time MV P1/2t max zain Ao V2 mean MR flow rate : 0.18 sec : 106.7 cm/sec : 221.1 cm3/sec MVA(P1/2t): 4.1 cm2 Ao V2 VTI: 34.7 cm MR PISA radius PA V2 mean : 49.5 cm/sec Reading Physician:03:10 PM
[2016-05-21] MEDS ORDERED: BENZ100C8 PO (15:45)
[2016-05-21] MEDS ORDERED: ACET325T51 PO (15:45)
[2016-05-21] MEDS ORDERED: GUAI5LIQ PO (15:45)
[2016-05-21] MEDS ORDERED: MELA3TAB35 PO (15:45)
--- NOTE | 2016-05-21 15:46 | NUR ---
Med Rec Med Rec completed utilizing [facility] records dated 05/13/16 as well as records from [facility]. Addendum: 05/21/16 at 1547 by CHEYENNE MARTINEZ RN Amended: Links added.
[2016-05-21 16:03] LABS: INR 1.19 ratio
--- NOTE | 2016-05-21 17:45 | NUR ---
RAZIA explained and signed. Copy of RAZIA and Medicare self administered medication information given to pt.
[2016-05-22] VITALS (13 sets, daily range): BP systolic 92–135; BP diastolic 40–81; PULSE 61–124; RESP 16–22; O2SAT 94–100
--- NOTE | 2016-05-22 00:30 | NUR ---
Conversion to Afib Pt converted to A-Fib with V-Pacing 110s-130s at approximately 2245 and is asymptomatic. was made aware and ordered STAT BMP.
--- NOTE | 2016-05-22 03:30 | NUR ---
Conversion to ST 100s-110s Pt's HR began to jump into the 180s-200s and the pt could feel the change and would grab her chest. A STAT EKG was ordered. was notified of the increase in the Afib HR. Pt converted into ST 100s-110s approximately 0330. Pt's HR increases when pt sits up in the bed and when OOB to BSC. Will continue to monitor pt.
[2016-05-22 03:54] LABS: BASOPHILS % (AUTO) 0.2 % (0-3); EOSINOPHILS % (AUTO) 0.6 % (0-5); MONOCYTES % (AUTO) 10.9 % (4-12); Mean Corpuscular Hemoglobin 29.6 pg (27.0-35.0); Mean Corpuscular Volume 96.4 fL (81-100); NEUTROPHILS % (AUTO) 74.9 % (40-74); Platelet Count 320 bil/L (150-400)
--- NOTE | 2016-05-22 05:32 | NUR ---
Patient has not needed bipap she she came to the floor, patient is on 2Lnc resting conformably with sats in the low to mid 90%. Patients breath sounds are slightly diminished and she is in no respiratory distress
[2016-05-22] MEDS ORDERED: Diltiazem 5 mg/mL 5 mL Inj IVPUSH ONE (08:40)
[2016-05-22] MEDS ORDERED: Diltiazem Inj 125 MG in 0.9% Sodium Chloride 100 ML, Pharmacy To Mix 1 EA IV SCH (08:40)
--- NOTE | 2016-05-22 09:22 | NUR ---
Afib Tele reported HR 180s at approximately 0830. Pt stated she was not symptomatic. Pt ICD shocked pt three times while in pt room. Called tele, tele reported HR 200. Notified Chg. Notified MD. Diltiazem push ordered. IV Diltiazem ordered. cytotechnologist notified of Dilt push and drip. 0838 BP 120/80 HR 200. 0840 administered 10mg push. 0845 BP 128/81 HR 180s. 0850 HR 170. 0855 HR 130s. Diltiazem Drip start 0915 at 5ml/hr HR 130s, BP 130/75. 0930 HR 130s, increase drip to 12 ml/hr. Care continues.
[2016-05-22] MEDS ORDERED: Amiodarone 150 mg/100 mL D5W 150 MG in IV Premix 1 EACH IV ONE (09:55)
[2016-05-22] MEDS ORDERED: Amiodarone 360 mg/200 mL D5W 360 MG, Filter, Taxol 14256-28 1 EACH in IV Premix 1 EACH IV SCH (09:55)
[2016-05-22] MEDS ORDERED: IV Premix 1 EACH IV ONE ×2 (10:27→10:43)
[2016-05-22] MEDS ORDERED: Amiodarone 360 mg/200 mL D5W Premix IV ONE ×2 (10:27→10:43)
[2016-05-22] MEDS: MeTOProlol XL 50 mg ER24 Tablet PO SCH (10:50)
--- NOTE | 2016-05-22 11:57 | NUR ---
Inpatient status effective today, [facility] signed
--- NOTE | 2016-05-22 14:11 | NUR ---
Social Work Note: Initial Assessment Data& Assessment: EMR reviewed. SW met with pt and pt daughter at bedside to discuss discharge planning, SW role explained. Phone number provided on pt white board. Olivia Santos is a 81 year old female admitted on 05/21/2016 for CHF exacerbation. Pt has Medicare and [facility] [employer] for [facility] Supplement insurance coverage. Pt sees TRACY Eng for primary care. Pt came from [facility] where she was receiving rehab for the last week. Prior to [facility], pt was a pt at [facility]. Pt explained that prior to her hospital admission to [facility], she was independent, drove, bowled in the winter and golfed in the spring. Pt has been requiring the assistance of a walker since kaur discharged to [facility] and is currently on Bedrest per supervisor opening and picking. Pt is open to going back to [facility] (Access provided and very confirmation with Magalys in admissions), however, she would like to see what the physical therapists and MD recommend. Pt is also currently wearing oxygen which she did not need previously. Pt does not have HH hx. Pt does not have LTC insurance or VA benefits. Pt daughter explained she will bring in the signed copy of DPOA/Advance directive paperwork to the RN. Pt and pt daughter deny any other needs at this time. SW to continue to follow for MD and PT evaluation and recommendations. Plan: Anticipated discharge back to [facility] when medically ready for continued rehab pending PT and MD evaluation and recommendations. Pt and pt daughter deny any other needs at this time. SW to continue to follow. JV Murray Addendum: 05/22/16 at 1419 by CATHERINE MARCELO Amended: Links added.
--- NOTE | 2016-05-22 14:39 | PROCED ---
[address] [address] PROCEDURE NOTE PATIENT: MELISSA HENDRICKSON : 1935 MR#: [id number] ADMIT: 05/21/2016 JOB ID: [id number] DATE OF SERVICE: 05/22/2016 SURGEON: Lisa Campbell MD. POSTOPERATIVE DIAGNOSIS(ES): PREOPERATIVE DIAGNOSIS(ES): CHIEF COMPLAINT: Shock. PROCEDURE: Cardiology device interrogation. PATIENT PRESENTATION: This is a an unfortunate, 81-year-old woman with ischemic cardiomyopathy, EF 20%, occluded dominant circ, single-lead ICD implanted for primary prevention in 2009, that has subsequently been upgraded to a bi-V device in February 2013. The patient had a iman course with unfortunately hospitalization at [facility] for subdural hematoma, May 03 through May 13. She was discharged to [facility] for rehabilitation and then unfortunately bounced back with worsening shortness of breath to [facility] on May 21, 2016. Apparently, this morning, her RN noted that patient was complaining of shock and device check was requested. Briefly, this is a Viva XT biventricular ICD implanted by Dr. Kowalski, March 27, 2013. Unfortunately battery longevity is five months. Since the prior device check, May 04, 2016, she had 39 hours of atrial fibrillation and during atrial fibrillation episode she was V-sensed 12%, V-paced 53%, and VSR paced 34%. During mode switch episodes, the AFib rate was usually between 100 up to 120 beats per minute but occasionally it did exceed 140 beats per minute. The device registered ventricular tachycardia, but upon review of the EGMs, I think that was not quite what was happening. I think unfortunately it was AFib with rapid ventricular response. Overall, eight episodes fell into VF zone, three episodes fell into a fast VT zone. Forty shocks were delivered. Three charges were aborted. Eight out of ten episodes were terminated. Patient has had ongoing fluid accumulation since May 10, 2016. Prior to this device check in the time span between March 18 and May 04, she only had 4 seconds of AFib and she did not have any ICD discharges at that time. PLAN: At this moment in time, patient is in AFib with RVR. I am going to treat this with medication. I am going to restart her Toprol-XL. I am going to reload her with amiodarone, and in the short term, I disabled her tachy therapy because I think the ICD discharges were not appropriate in my opinion and were frankly just related to AFib with RVR. I will monitor the patient closely, and once her dysrhythmia is stable on medical therapy, I will go ahead and restart her tachy therapy back on. Thank you very much for the opportunity to evaluate this patient.
--- NOTE | 2016-05-22 15:03 | CONS ---
[address] [address] CONSULTATION REPORT PATIENT: MELISSA HENDRICKSON : 1935 MR#: [id number] ADMIT: 05/21/2016 JOB ID: [id number] DATE OF SERVICE: 05/22/2016 CHIEF COMPLAINT: Shortness of breath. HISTORY OF PRESENT ILLNESS: The patient is an unfortunate, 81-year-old woman, with an ischemic cardiomyopathy, occluded dominant circ, ejection fraction 20%, paroxysmal atrial fibrillation, on amiodarone, and a history of single-lead ICD that was subsequently upgraded to a biventricular ICD in February 2013. She unfortunately had a iman course in the past 30 days. She had acute on chronic subdural hematoma at [facility], for which she was hospitalized at [facility], May 03 through May 13, 2016. Apparently she was having dizziness and right-sided weakness in the days leading to admission. Upon arrival, she was unresponsive with a large subdural hematoma with a 1.3 cm rightward midline shift. She was intubated and brought to the OR for decompression. She had ventricular tachycardia on postop day one, and device appropriately delivered life-saving shock twice, and normal sinus rhythm was restored. An amiodarone load was started. She was discharged from [facility], and I thoroughly reviewed her discharge summary. She was sent home on Lipitor, Entresto twice a day, Toprol-XL 100 twice a day, amiodarone and levothyroxine. Of note, she was not sent home on Lasix. She normally takes Lasix 80 mg twice a day. Neither was she is sent home on metolazone 2.5 mg which she normally takes twice a week on Monday and . It sounds like she was having worsening shortness of breath while she was recovering in [facility]. She was treated in the emergency department with Lasix 80 mg IV, which helped her breathing. She was admitted on the but basically went into AFIB with RVR, starting at 10 p.m. on May 21, and then had what appears to be 40 ICD discharges so far during her hospitalization. PAST MEDICAL HISTORY: 1. Congestive heart failure. Ejection fraction is 20%. This problem was diagnosed in 2006 and was treated with medical therapy, along with initially ICD single-lead device for primary prevention, which was subsequently upgraded to bi-V ICD in February 2013. 2. Coronary artery disease with occluded dominant circumflex and 70% proximal mid RCA. 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 Lopez. 3. Paroxysmal AFib. Historically she has been on oral anticoagulation with warfarin. Unfortunately, she had a subdural hematoma and requiring surgical decompression, and as a result, warfarin is on hold. 4. Moderate mitral regurgitation in the setting of tethered posterior leaflet and annular dilation. 5. Thyroid mass. Attributed to thyroid goiter. Unfortunately, it is resulting in tracheal deviation. Functional thyroid studies show normal TSH as of June 02, 2015. I do not see that she has had a consultation with Endocrinology to discuss this further. Most recent ultrasound, March 09, 2016, showed large thyroid nodule on the right side and ultrasound guidance fine needle aspiration was recommended. I do not see pathology report of this. It is not available for review at this time. 6. Anemia. 7. Hyperlipidemia. PAST SURGICAL HISTORY: 1. Left craniectomy, May 04, 2016. 2. Osteoporosis. 3. Dupuytren's contracture. 4. History of cataract surgery, 2012. FAMILY HISTORY: Brother with a blood clot. Father with a heart attack. Mother with dementia. SOCIAL HISTORY: The patient is a former smoker. REVIEW OF SYSTEMS: Weakness, fatigue, shortness of breath and palpitations. Otherwise, 10-point review of systems is negative. PHYSICAL EXAMINATION: Vital signs: Temperature 36.8, blood pressure 95/62, up to 135/66, pulse 101 up to 124 beats per minute. Satting 94% to 96% on 2 L nasal cannula. Older lady sitting in bed. No apparent distress. Eyes: No scleral icterus. Neck supple. No carotid bruits. Heart: Normal S1, S2. A 1/6 holosystolic murmur at the apex. Heart is irregular and heart sounds are distant. Lungs are clear anteriorly. Abdomen: Soft, positive bowel sounds. Extremities: Warm and perfused. No clubbing, cyanosis, or edema. Skin: No rashes or lesions. Head is normocephalic, atraumatic, with a shaved scalp. LABORATORY: Reviewed. She is anemic. Hematocrit is 30%, white count 12.5, platelet count 320. Creatinine 1.3. Potassium 4.3. Transaminases are normal. Troponin T 0.017. INR is 1.2. IMAGING: Radiograph shows a small right pleural effusion, increased pulmonary edema. Enlargement of the cardiomediastinal silhouette. I thoroughly reviewed the discharge summary from [facility]. Multiple tests were performed over there, including: CT of the chest, abdomen, and pelvis. It demonstrated a large right thyroid mass measuring 7 cm, resulting in mass effect on the trachea and tracheal deviation, severe centrilobular emphysema with numerous nodules in a tree-in-bud distribution within the right middle lobe and within the lingula, which could be seen in the setting of Mycobacterium avium infection. A 9 mm hypodensity in the liver that could not be characterized further without contrast. A 2 cm right adrenal nodule which is indeterminate. Head CT showed evidence of prior craniectomy with evacuation of the left holohemispheric acute on chronic subdural hematoma with expected postoperative changes. There is improvement in subfalcine herniation and no evidence of uncal herniation. She also had an echocardiogram over there, May 04. She had at that time sinus rhythm with V pacing and some PVCs, severely dilated left ventricle, mild concentric LVH, moderately reduced LV systolic function. EF at that time was 36%. Akinesis of the inferior posterior inferior septal wall which is consistent with prior infarct in the dominant circumflex distribution. The pulmonary artery systolic pressure could not be estimated due to lack of significant TR jet. At that time she had moderate mitral regurgitation, aortic regurgitation. No pericardial effusion. She also had a stress test, May 11, 2016. This appears to be a pharmacologic stress test with myocardial perfusion imaging. There was a large severe inferior perfusion defect which was only mildly improved on rest images. This is consistent with evidence of prior large sized infarct involving inferior, inferolateral and inferoseptal wall with mild margarito-infarct ischemia. Sum stress score was 38, sum rest score was 32, sum difference score was six. She had VT, March 24, with two shocks delivered, May 04. She was then started on amiodarone drip. ASSESSMENT AND PLAN: In summary, this is a unfortunate, 81-year-old woman with ischemic cardiomyopathy, paroxysmal atrial fibrillation, and what appears to be implantable cardioverter-defibrillator discharges due to basically atrial fibrillation with rapid ventricular response. PLAN: 1. I recommend continuing her Lipitor 40 mg daily, continuing Lasix. She is currently on 80 mg by mouth twice a day. Entresto does not appear to be on our [facility] formulary, so I went ahead and ordered for her losartan 50 mg daily. I recommend stopping diltiazem because I do not think it is the best option for her cardiomyopathy. As an outpatient, before her hospitalization, she was on Coreg, then at [facility]. She was started on Toprol-XL 100 mg every 12 hours. I think we will just go ahead and give her metoprolol tartrate 100 mg once a day and see how she does with that. In terms of history of VT noted at [facility], as well as AFib with RVR, I recommend reloading her with amiodarone and I have hope it helps her. 2. Volume status: Continue to monitor closely. Low threshold to change her to IV Lasix. 3. Paroxysmal atrial fibrillation and stroke prevention. Not a good candidate for anticoagulation due to history of falls and subdural hematoma. Tomorrow, depending on how she does, we will start her on aspirin. 4. Tree-in-bud appearance of pulmonary parenchyma at [facility]: This is obviously not a Cardiology issue and I will discuss this further with the hospitalist team. I think this can be handled as an outpatient. She does not have active cough, but if she does develop, she would benefit from a sputum culture and AFB smears. 5. Thyroid mass: Again, this is something that can be handled as an outpatient. Right now, even though she does have tracheal deviation, she does not have airway compromise. I recommend that she discuss this problem further with Yeni Montes and have a low threshold to refer to Endocrinology. Of note, I could easily see this mass on suprasternal notch views on her transthoracic echocardiogram. The patient is closely monitored by Yeni Montes. Thank you very much for the opportunity to participate in her care.
--- NOTE | 2016-05-22 17:02 | PCM.PNMED ---
Subjective Date of Service May 22, 2016 Subjective Patient had an eventful morning with her tachycardia causing her AICD to go off. The patient reports that was quite painful for her. Dr. Campbell saw the patient and made some medication adjustments in an effort to prevent more AICD triggers. Patient denies chest pain, palpitations, dizziness, and shortness of breath. She has no other complaints for me at the time of this interview. Overnight, patient went into a. fib with RVR and a rate in the 180s. Night resident told of the change but no changes made as patient converted to sinus tachycardia. Exam Vital Signs Vital Sign - Last Date Time Temp Pulse Resp B/P Pulse Ox O2 Delivery O2 Flow Rate FiO2 05/22/16 16:24 36.5 100 22 92/51 Nasal Cannula 2.00 05/22/16 08:56 94 05/22/16 02:24 97 Intake and Output 05/21/16 05/21/16 05/22/16 Cumulative From/Thru 15:00 23:00 07:00 05/21/16 06:36 - 05/22/16 05:23 Intake Total 160 ml 100 ml 260 ml Output Total 1700 ml 850 ml 700 ml 3250 ml Balance -1700 ml -690 ml -600 ml -2990 ml Intake Oral 160 ml 100 ml 260 ml Output Urine Total 1700 ml 850 ml 700 ml 3250 ml # Voids 1 1 # Bowel Movements 1 0 1 Exam General: Laying in bed, no apparent distress. A&O x3. HEENT: Normocephalic, sagittal surgical scar, extraocular muscles intact, mucous membranes moist, conjunctivae pink, neck is supple without adenopathy trachea midline. Cardiovascular: Irregularly irregular rhythm, systolic murmur heard at right upper sternal border, harsh systolic murmur at left midaxillary line Pulmonary: Bibasilar rales left greater than right. No wheezing, chest excursion equal bilaterally. Abdominal: Soft to palpation, nontender, nondistended, bowel sounds present 4, no hepatosplenomegaly. Extremities: No cyanosis or edema appreciated. Clubbing of the toes noted. Radial and dorsalis pedis pulses present and equivalent bilaterally. Skin: no wounds or ulcers appreciated Neuro: Neurologically grossly intact, strength is equal bilaterally upper and lower extremities. IVs and Medications Medications Reviewed: Medications were reviewed in detail Lab and Diagnostics Result Diagram: 05/22/16 0324 05/22/16 0324 X-Rays, CTs and MRIs Portable chest x-ray performed 05/21/2016 IMPRESSION: 1. Increased pulmonary edema with medial bibasilar atelectasis or consolidation. 2. Small right pleural effusion 3. Enlargement of the heart compared to the prior study. This may be due to differences in technique versus a pericardial effusion. Recommend a repeat PA and lateral study when clinically feasible. Dictated by: Kartik Blank M.D. on 05/21/2016 at 8:52 Cardiac Echo Impressions Interpretation Summary Normal sinus rhythm. Severely dilated LV; normal wall thickness. There is severely reduced LV systolic function, estimated at 20-25%. There are focal wall motion abnormalities with mid-inferior, distal inferior, mid-inferolateral, basal inferior akinesis. All other segments are hypokinetic. Stage II diastolic dysfunction. Severe LA enlargement and mild RA enlargement. There is mild mitral annular calcification. Anterior mitral valve leaflet is normal; posterior leaflet is tethered; there is severe eccentric posterolaterally directed MR in the setting of annular dilation and tethered posterior leaflet. Aortic valve leaflets are normal; there is moderate central AI. Tricuspid valve leaflets are normal; there is moderate central TR in the setting of pacing lead traversing the tricuspid valve. Estimated PA systolic pressure is 72-77 mm Hg assuming RA pressure of 15-20 mm Hg. There is moderate right pleural effusion. There is incidentally noted thyroid mass on suprasternal views measuring about 4.8 cm diameter. Compared to prior study performed 03/08/2016. LV is visually less dynamic. PA systolic pressure is up from 42 mm Hg to 72-77 mm Hg. This most likely reflects rising LV EDP with associated increase in PASP. Reading Physician:03: 10 PM Assessment & Plan Patient is a pleasant 81-year-old woman with history of cardiomyopathy, hemorrhagic CVA, ICD in place, paroxysmal atrial fibrillation, and congestive heart failure recently discharge from [facility] after craniotomy for hematoma evacuation, released to [facility] for rehabilitation, and has had progressive shortness of breath and lower extremity edema. Believed to be in CHF exacerbation secondary to fluid retention, received IV furosemide in the emergency department and symptoms are resolving. Hospital day 2 1. Acute on chronic systolic and diastolic congestive heart failure exacerbation , present on admission, improving - Sabin to be most likely due to discontinuation of Lasix from her recent hospitalization, and subtherapeutic doses in the subsequent days leading to admission. - EF 20-25% on echo done 05/21/16. - Dr. Campbell of cardiology consulted and we appreciate her continued expertise. - Lasix 80 mg PO BID. - Metoprolol succinate 100 mg daily. - Losartan 50 mg daily. 2. Acute on chronic Elevated troponin, present on admission, ongoing. - Most likely due to demand ischemia given increased fluid status. - Continue telemetry monitoring. - Repeat troponin tomorrow AM. 3. Acute Leukocytosis with left shift, present on admission, improving. - Leukocyte margination secondary to physiologic stress secondary to above- mentioned conditions - Continue to monitor CBC. 4. Paroxysmal atrial fibrillation, acute on chronic, not present on admission, ongoing. - Overnight, a. fib with RVR with rates into 180s. - Amiodarone drip started to reload patient. Will transition to PO per cardiology recommendations. - Metoprolol succinate started 100 mg daily. - Warfarin dosing per pharmacy. - Continue telemetry. 5. Chronic kidney disease stage III, presume stable. - Patient's creatinine appears to be at baseline as well as her estimated GFR. - Continue to monitor BMP. 6. Chronic anemia, presume stable. - Baseline appears to be Hgb about 8-9. - Continue to monitor CBC. 7. Hypothyroidism, chronic, presume stable. - Continue levothyroxine 50 mcg daily. 8. Hyperlipidemia, chronic, presume stable. - Continue atorvastatin 40 mg HS. - Antiemetic available PRN. - Bowel regimen available PRN. - Antacid available PRN. Disposition: anticipate discharge to home vs. SNF in 1-2 days. Currently trying to stabilize patient on her medications again. Pain Evaluation: Adequate Pain Control GI Prophylaxis: Not indicated VTE Prophylaxis: SCDs Resuscitation Status: DNR/DNI:Do Not Resuscitate/Intubate Attending Statement The patient was seen and examined together with Dr. Anand on 05/22/2016 and I agree with the history, exam and plan as outlined in the note above. . Xiomara Anand DO May 22, 2016 17:02 Freeman Moran MD May 22, 2016 17:53
--- NOTE | 2016-05-22 17:33 | NUR ---
Amiodarone Started 16.7 ml/hr Amiodarone at 1730. Pt resting.
[2016-05-22] MEDS ORDERED: 0.9% Sodium Chloride 250 ML IV SCH (18:10)
--- NOTE | 2016-05-22 19:17 | NUR ---
Afib => SR Pt converted to SR at approximately 1820. Cardiology notified. Amiodarone infusing at 16.7 ml/hr. Cardiology assessing pt. Care continues.
--- NOTE | 2016-05-22 19:41 | PROCED ---
[address] [address] PROCEDURE NOTE PATIENT: MELISSA HENDRICKSON : 1935 MR#: [id number] ADMIT: 05/21/2016 JOB ID: [id number] DATE OF SERVICE: 05/22/2016 POSTOPERATIVE DIAGNOSIS(ES): PREOPERATIVE DIAGNOSIS(ES): SURGEON: Lisa Campbell MD INDICATIONS: Patient had AFib with RVR and she just converted out of AFib back into normal sinus rhythm. I came in to program her defibrillator back on. Briefly, I turned it off while she was in atrial fibrillation. Now she is no longer in atrial fibrillation. I felt the safest was to turn back on, so I programmed her in two zones, VT zone for rate 171 up to 188 with three bursts and then 20 joule shocks and 35 joule shocks. VF zone atrial rate greater than 180 beats per minute and she is designed to get smart mode ATP followed by multiple 35 joule shocks. Thank you very much for the opportunity to evaluate this patient. ARLETTE
--- NOTE | 2016-05-22 19:56 | PCM.CONPHA ---
Subjective Shortness of breath Lower extremity edema Reason for Pharmacy Consult: Anticoagulation Management Assessment/Plan Assessment/Plan Warfarin per pharmacy for atrial fibrillation with goal INR 2-3. Patient has previously been on warfarin, but from medication reconciliation the dose has been changed from 6mg on MoWeFr and 4.5mg SuTuThSa to 3mg daily, and will need to be further clarified in the morning with the primary provider in the community. Today's INR is 1.19, so 5mg was given. HCT=29.6 PLT 320. Of note, the patient had an acute on chronic subdural hematoma for which she was hospitalized at [facility], May 03 through May 13, 2016. Pharmacy will follow INRs and dose warfarin daily. Peyton Becker [facility] May 22, 2016 19:56
[2016-05-22] MEDS: ENTRESTO PO SCH (20:30)
[2016-05-22] MEDS ORDERED: MeTOProlol XL 50 mg ER24 Tablet PO ONE (21:40)
[2016-05-22] MEDS ORDERED: 0.9% Sodium Chloride 500 ML IV ONE (23:16)
[2016-05-22] MEDS ORDERED: 0.9% Sodium Chloride 500 ML IV SCH (23:20)
[2016-05-23] VITALS (9 sets, daily range): BP systolic 87–114; BP diastolic 37–59; PULSE 69–76; RESP 17–20; O2SAT 95–98
[2016-05-23 03:42] LABS: Mean Corpuscular Hemoglobin 29.5 pg (27.0-35.0); Mean Corpuscular Volume 97.8 fL (81-100)
[2016-05-23 03:45] LABS: INR 1.25 ratio
[2016-05-23 04:39] LABS: Magnesium 1.6 mg/dL (1.6-2.6); Phosphorus 4.4 mg/dL (2.5-4.9)
[2016-05-23 05:07] LABS: TROPONIN T 0.106 ug/L (0.0-0.011)
[2016-05-23] MEDS ORDERED: Amiodarone 360 mg/200 mL D5W Premix IV ONE (05:29)
[2016-05-23] MEDS ORDERED: IV Premix 1 EACH IV ONE (05:29)
--- NOTE | 2016-05-23 06:17 | NUR ---
HR/BP/Critical Lab Pt's HR increased during the night and pt went back into A-Fib and MD was notified. Pt went back and forth between A-Fib to AV-Paced 70s. Pt has remained AV-Paced 70s since 0200 and SBP>90. Pt tends to sleep on right arm and that is the arm that has the BP cuff on it. Pt's BP cuff needs to be adjusted from time to time to get an accurate reading. Pt did receive a 500cc bolus at 250ml/hr for a BP of 81/44 at approximately 2200. Lab called with critical lab of Troponin 0.106 and MD was notified. ordered STAT EKG.
[2016-05-23] MEDS: ENTRESTO PO SCH ×2 (09:14→21:42)
[2016-05-23] MEDS: MeTOProlol XL 50 mg ER24 Tablet PO SCH (09:14)
--- NOTE | 2016-05-23 12:48 | PCM.PNMED ---
Subjective Date of Service May 23, 2016 Subjective Patient has no complaints today, states she is feeling nearly back to baseline. Has not gotten out of bed out of concern for weakness. No problems using bedside commode. Denies any lightheadedness, dizziness, chest pain, shortness of breath, swelling in her bilateral lower extremities, or cough. Overnight events include 3 beats of V. tach, but did not require any shocks from ICD. Patient remained asymptomatic. Exam Vital Signs Vital Sign - Last Date Time Temp Pulse Resp B/P Pulse Ox O2 Delivery O2 Flow Rate FiO2 05/23/16 11:36 36.5 71 18 100/43 96 Room Air 05/23/16 07:47 2.00 05/22/16 02:24 97 Intake and Output 05/22/16 05/22/16 05/23/16 Cumulative From/Thru 15:00 23:00 07:00 05/21/16 06:36 - 05/23/16 06:47 Intake Total 806 ml 1210 ml 2276 ml Output Total 1300 ml 400 ml 4950 ml Balance -494 ml 810 ml -2674 ml Intake Oral 520 ml 500 ml 1280 ml IV Total 286 ml 710 ml 996 ml Output Urine Total 1300 ml 400 ml 4950 ml # Voids 3 4 # Bowel Movements 1 2 Exam General: Laying in bed, no apparent distress. A&O x3. HEENT: Normocephalic, sagittal surgical scar, extraocular muscles intact, mucous membranes moist, conjunctivae pink, neck is supple without adenopathy trachea midline. Cardiovascular: Irregularly irregular rhythm, systolic murmur heard at right upper sternal border, harsh systolic murmur at left midaxillary line Pulmonary: Bibasilar rales left greater than right. No wheezing, chest excursion equal bilaterally. Abdominal: Soft to palpation, nontender, nondistended, bowel sounds present 4, no hepatosplenomegaly. Extremities: No cyanosis or edema appreciated. Clubbing of the toes noted. Radial and dorsalis pedis pulses present and equivalent bilaterally. Skin: no wounds or ulcers appreciated Neuro: Neurologically grossly intact, strength is equal bilaterally upper and lower extremities. Lab and Diagnostics Result Diagram: 05/23/16 0252 05/23/16 0252 X-Rays, CTs and MRIs Portable chest x-ray performed 05/21/2016 IMPRESSION: 1. Increased pulmonary edema with medial bibasilar atelectasis or consolidation. 2. Small right pleural effusion 3. Enlargement of the heart compared to the prior study. This may be due to differences in technique versus a pericardial effusion. Recommend a repeat PA and lateral study when clinically feasible. Dictated by: Kartik Blank M.D. on 05/21/2016 at 8:52 Cardiac Echo Impressions Interpretation Summary Normal sinus rhythm. Severely dilated LV; normal wall thickness. There is severely reduced LV systolic function, estimated at 20-25%. There are focal wall motion abnormalities with mid-inferior, distal inferior, mid-inferolateral, basal inferior akinesis. All other segments are hypokinetic. Stage II diastolic dysfunction. Severe LA enlargement and mild RA enlargement. There is mild mitral annular calcification. Anterior mitral valve leaflet is normal; posterior leaflet is tethered; there is severe eccentric posterolaterally directed MR in the setting of annular dilation and tethered posterior leaflet. Aortic valve leaflets are normal; there is moderate central AI. Tricuspid valve leaflets are normal; there is moderate central TR in the setting of pacing lead traversing the tricuspid valve. Estimated PA systolic pressure is 72-77 mm Hg assuming RA pressure of 15-20 mm Hg. There is moderate right pleural effusion. There is incidentally noted thyroid mass on suprasternal views measuring about 4.8 cm diameter. Compared to prior study performed 03/08/2016. LV is visually less dynamic. PA systolic pressure is up from 42 mm Hg to 72-77 mm Hg. This most likely reflects rising LV EDP with associated increase in PASP. Reading Physician:03: 10 PM Assessment & Plan Patient is a pleasant 81-year-old woman with history of cardiomyopathy, hemorrhagic CVA, ICD in place, paroxysmal atrial fibrillation, and congestive heart failure recently discharge from [facility] after craniotomy for hematoma evacuation, released to [facility] for rehabilitation, and has had progressive shortness of breath and lower extremity edema. Believed to be in CHF exacerbation secondary to fluid retention, received IV furosemide in the emergency department and symptoms are resolving. Hospital day 2 1. 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 - EF 20-25% on echo done 05/21/16. - Dr. Campbell of cardiology consulted and we appreciate her continued expertise. - Stop Lasix 80 mg twice a day. - Start torsemide 40 mg daily -discussed with Dr. Guzman of cardiology - Metoprolol succinate 100 mg daily. - Losartan 50 mg daily. 2. Acute on chronic Elevated troponin, present on admission, ongoing. - Most likely initially due to demand ischemia given increased fluid status. Increased on hospital day 2 following several shocks from her ICD. - Continue telemetry monitoring. - Repeat troponin tomorrow AM. 3. Acute Leukocytosis with left shift, present on admission. Resolved. - Leukocyte margination secondary to physiologic stress secondary to above- mentioned conditions - Continue to monitor CBC. 4. Paroxysmal atrial fibrillation, acute on chronic, not present on admission, ongoing. - Overnight, a. fib with RVR with rates into 180s. - Amiodarone drip completed. 200 mg by mouth daily for maintenance. - Metoprolol succinate started 100 mg daily. - Warfarin dosing per pharmacy. This was restarted 2 days before admission, with the initial plan to restart her on warfarin 2 weeks following subdermal hematoma evacuation. - Continue telemetry. 5. Chronic kidney disease stage III, presume stable. - Patient's creatinine appears to be at baseline as well as her estimated GFR. - Continue to monitor BMP. 6. Chronic anemia, presume stable. - Baseline appears to be Hgb about 8-9. - Continue to monitor CBC. 7. Hypothyroidism, chronic, presume stable. - Continue levothyroxine 50 mcg daily. 8. Hyperlipidemia, chronic, presume stable. - Continue atorvastatin 40 mg HS. - Antiemetic available PRN. - Bowel regimen available PRN. - Antacid available PRN. Disposition: anticipate discharge to home vs. SNF in 1-2 days. Currently trying to stabilize patient on her medications again. Pain Evaluation: Adequate Pain Control GI Prophylaxis: Not indicated VTE Prophylaxis: SCDs Resuscitation Status: DNR/DNI:Do Not Resuscitate/Intubate Attending Statement The patient was seen and examined together with Dr. Evans on 05/23/2016 and I agree with the history, exam and plan as outlined in the note above. . Hal Evans DO May 23, 2016 12:48 Freeman Moran MD May 27, 2016 08:46
--- NOTE | 2016-05-23 13:19 | NUR ---
Evaluation completed. Please go to "Notes" then click on "Assessments and Notes" (bottom left corner of screen). Then select appropriate discipline tab on top of screen.
--- NOTE | 2016-05-23 14:53 | NUR ---
Gave access to [facility] Updated SECURITY CLERK
--- NOTE | 2016-05-23 19:27 | NUR ---
Activity/Diltiazem gtt/BP Cardiac: Pt denies chest pain, Tele: AV-Paced 60s-70s. Diltiazem gtt stopped at 11:30AM, PO dose given this AM. BP meds given this AM, Furosemide held for an hour for reassessment after conferring with Dr Anand. BP low 100/50s, decision made to change pt over to Torsemide. Pt tolerated Torsemide well, BP was maintained throughout shift. Resp: Pt denies SOB, SPO2 98% on 1L NC. Pt likes to keep NC around for comfort but does not strictly need it at this point. Will test off O2 tomorrow. GI/: pt denies N/V/D Neuro: AOx3, HAYWOOD, pt worked with PT and doing exercises at bedside this shift.
--- NOTE | 2016-05-23 19:33 | PROG NOTE ---
[address] [address] PROGRESS NOTE PATIENT: MELISSA HENDRICKSON : 1935 MR#: [id number] ADMIT: 05/21/2016 JOB ID: [id number] DATE: 05/23/2016 SUBJECTIVE: The patient is an 81-year-old patient, well known to me. She has ischemic cardiomyopathy with ejection fraction of 20%, paroxysmal atrial fibrillation on amiodarone, and has a biventricular ICD implanted in February 2013. She suffered acute on chronic subdural hematoma and was hospitalized at [facility] from May 03 to May 13, 2016. She was discharged to [facility] for physical therapy. However, her furosemide was discontinued at [facility] and the patient presented to [facility] with congestive heart failure. The patient reports feeling better. Her leg swelling has come down. Her breathing is back to normal. She still has right-sided weakness. She did not have a problem with her speech. Her swallowing is back. She denies orthopnea or PND. OBJECTIVE: Temp is 36.4. Blood pressure is 102/59. Pulse 70. Body weight is 62.1 kg. Head and face have normal configuration. Anicteric sclerae. Neck supple. No jugular venous distention. Lungs are clear to auscultation. Heart. The first heart sound is diminished. Second heart sound is normal. Grade 1/6 holosystolic murmur at the apex. Abdomen: Soft. Extremities: No clubbing, cyanosis, or edema. EKG this morning showed V paced. IMPRESSION: 1. Acute on chronic combined systolic and diastolic heart failure, due to missing diuretics. 2. Ischemic cardiomyopathy with ejection fraction 20% to 25%. 3. Paroxysmal atrial fibrillation, currently in sinus. 4. Recent subdural hematoma. PLAN: Warfarin will be discontinued in view of recent subdural hematoma. The patient also received amiodarone, which has interaction with warfarin. This combination can cause hypercoagulability. The patient is not steady on her feet with right-side weakness, which increased the risk of intracranial bleeding further. I would like to use clopidogrel to prevent embolic stroke from paroxysmal atrial fibrillation. However, I will hold starting her on clopidogrel for at least six weeks after her subdural hematoma event. MTDD
[2016-05-24] VITALS (8 sets, daily range): BP systolic 95–116; BP diastolic 40–59; PULSE 66–107; RESP 17–25; O2SAT 95–99
[2016-05-24 03:22] LABS: Mean Corpuscular Hemoglobin 29.3 pg (27.0-35.0)
[2016-05-24 03:47] LABS: INR 1.23 ratio
[2016-05-24] MEDS: MeTOProlol XL 50 mg ER24 Tablet PO SCH (03:50)
[2016-05-24 04:18] LABS: TROPONIN T 0.09 ug/L (0.0-0.011)
[2016-05-24 04:32] LABS: Creatine Kinase 82 U/L (21-215)
--- NOTE | 2016-05-24 06:25 | NUR ---
Vtach Pt went into sustained Vtach at 0321 and was asymptomatic, sitting on side of bed conversing with staff. Crash cart and pacer pad placed. Pt continued in Vtach for about 5 minutes before her AICD fired at a HR of 190. notified and orders to give her AM dose of 100mg Metoprolol and 200 mg Amiodarone and new EKG were given. After AICD fired pt rate was Vpaced with PVC's. AM labs show K+ of 3.4 and MD notified and orders for 20mEq K+ were given, awaiting pharmacy verification. VSS.
[2016-05-24] MEDS ORDERED: Potassium Chloride 20 mEq SR Tablet PO ONE ×3 (06:35→16:30)
[2016-05-24] MEDS ORDERED: Magnesium Sulf 4 Gm/100 mL H2O 4 GM in IV Premix 1 EACH IV ONE (08:20)
[2016-05-24] MEDS: ENTRESTO PO SCH ×2 (09:10→21:06)
--- NOTE | 2016-05-24 11:01 | NUR ---
Social Work: Readiness for d/c Data: Pt is on day 3 of hospitalization. EMR reviewed, pt discussed in rounds. MD states pt likely to d/c tomorrow, and that they plan to have cardiology consult regarding pt today. MAINTENANCE CUSTODIAN will continue to follow. Assessment: Pt from SNF. Plan: Pt will d/c to [facility] when medically stable, likely tomorrow per MD, via cabulance. MAINTENANCE CUSTODIAN will continue to follow. JV Rodriguez
--- NOTE | 2016-05-24 14:28 | NUR ---
Ambulate w/Nsg Pt has met all PT goals and is discharged from further PT at this time, released to ambulate w/nsg w/FWW SBA 2-3x/day as pt tolerates.
--- NOTE | 2016-05-24 14:28 | NUR ---
Mag/K+/Activity Cardiac: Pt denies chest pain, Tele: AV-Paced 90-110 with frequent PVCs including short runs of PVCs. Mag and K+ given this AM. Rate decreased down to 70s by noon. BP tolerating torsemide decreased down to 90s/50s but steady. ICD interrogation this afternoon. Resp: Pt denies SOB, SPO2 96% on RA. Pt has 1L at bedside for comfort. GI/: pt denies N/V/D Neuro: AOx3, HAYWOOD. Pt ambulated 150ft+ with PT this afternoon, no SOB, HR remained in the 70s, SPO2 92% on RA.
--- NOTE | 2016-05-24 15:47 | NUR ---
Social Work: Continued d/c planning Data: PT met with pt today and states pt is walking about 160 ft. GAUGE AND WEIGH MACHINE ADJUSTER spoke with UR specialist who states pt likely has nursing needs. GAUGE AND WEIGH MACHINE ADJUSTER met with pt to discus that if SNF cannot take pt back, GAUGE AND WEIGH MACHINE ADJUSTER will talk with her tomorrow regarding her options which would include home with HH or private pay SNF. GAUGE AND WEIGH MACHINE ADJUSTER will continue to follow. Assessment: Pt from SNF. Plan: Pt will likely d/c to [facility] when medically stable. GAUGE AND WEIGH MACHINE ADJUSTER will continue to follow. JV Rodriguez
--- NOTE | 2016-05-24 16:20 | PROG NOTE ---
[address] [address] PROGRESS NOTE PATIENT: MELISSA HENDRICKSON : 1935 MR#: [id number] ADMIT: 05/21/2016 JOB ID: [id number] DATE: 05/24/2016 The patient had an episode of ventricular tachycardia last night around 3:30 a.m. Overdrive pacing was unsuccessful and she eventually had one defibrillation from the device. The patient reports feeling better today. Her breathing is better. Her overall sense of well-being is back. She denies orthopnea or PND. OBJECTIVE: Temperature is 36.7. Blood pressure is 102/43. Pulse 68. Body weight is 62.7 kg. Neck: No jugular venous distention. Lungs are clear to auscultation. Heart: The first heart sound is diminished. Second heart sound is normal. Grade 1/6 holosystolic murmur at the apex. Abdomen soft. Extremities: No clubbing, cyanosis, or edema. Her ICD device was interrogated. The therapy zone was changed for atrial fibrillation with the rate of above 171 beats per minute, VT zone at 171-188 beats per minute and VF with a rate above 188 beats per minute. She will receive antitachycardia pacing before defibrillation. IMPRESSION: 1. Episode of ventricular tachycardia, requiring defibrillation. 2. Acute on chronic combined systolic and diastolic heart failure, resolved. 3. Ischemic cardiomyopathy with ejection fraction 20% to 25%. 4. Paroxysmal atrial fibrillation, currently in sinus. 5. Recent subdural hematoma. PLAN: The dose of amiodarone will be increased from 200 mg to 400 mg once daily in view of her ventricular tachycardia episode. Her potassium was low at 3.4 this morning. This could certainly trigger her ventricular tachycardia. I will add spironolactone 12.5 mg once daily in addition to potassium supplement. Torsemide will be temporary withheld.
--- NOTE | 2016-05-24 19:34 | PCM.PNMED ---
Subjective Date of Service May 24, 2016 Subjective Patient states she is feeling well this morning, has no complaints. Denies any lightheadedness, dizziness, chest pain, shortness of breath. She had a 5 minute run of sustained ventricular tachycardia this morning, she remained asymptomatic though did report she was able to feel her heart beating faster than normal. It was reported that once her heart rate met 190 beats per minute her defibrillator fired and knocked her into a ventricular paced rhythm. Exam Vital Signs Vital Sign - Last Date Time Temp Pulse Resp B/P Pulse Ox O2 Delivery O2 Flow Rate FiO2 05/24/16 15:27 36.7 68 17 102/43 95 Room Air 05/24/16 07:56 1.00 05/22/16 02:24 97 Intake and Output 05/23/16 05/23/16 05/24/16 Cumulative From/Thru 15:00 23:00 07:00 05/21/16 06:36 - 05/24/16 05:22 Intake Total 800 ml 700 ml 3776 ml Output Total 900 ml 1300 ml 7150 ml Balance -100 ml -600 ml -3374 ml Intake Oral 700 ml 700 ml 2680 ml IV Total 100 ml 1096 ml Output Urine Total 900 ml 1300 ml 7150 ml # Voids 4 # Bowel Movements 1 3 Exam General: Sitting on side of bed, no apparent distress. A&O x3. HEENT: Normocephalic, sagittal surgical scar, extraocular muscles intact, mucous membranes moist, conjunctivae pink, neck is supple without adenopathy trachea midline. Cardiovascular: Irregularly irregular rhythm, systolic murmur heard at right upper sternal border, harsh systolic murmur at left midaxillary line Pulmonary: Bibasilar rales left greater than right. No wheezing, chest excursion equal bilaterally. Abdominal: Soft to palpation, nontender, nondistended, bowel sounds present 4, no hepatosplenomegaly. Extremities: No cyanosis or edema appreciated. Clubbing of the toes noted. Radial and dorsalis pedis pulses present and equivalent bilaterally. Skin: no wounds or ulcers appreciated Neuro: Neurologically grossly intact, strength is equal bilaterally upper and lower extremities. IVs and Medications Medications Reviewed: Medications were reviewed in detail Lab and Diagnostics Result Diagram: 05/24/16 0245 05/24/165 X-Rays, CTs and MRIs Portable chest x-ray performed 05/21/2016 IMPRESSION: 1. Increased pulmonary edema with medial bibasilar atelectasis or consolidation. 2. Small right pleural effusion 3. Enlargement of the heart compared to the prior study. This may be due to differences in technique versus a pericardial effusion. Recommend a repeat PA and lateral study when clinically feasible. Dictated by: Kartik Blank M.D. on 05/21/2016 at 8:52 Cardiac Echo Impressions Interpretation Summary Normal sinus rhythm. Severely dilated LV; normal wall thickness. There is severely reduced LV systolic function, estimated at 20-25%. There are focal wall motion abnormalities with mid-inferior, distal inferior, mid-inferolateral, basal inferior akinesis. All other segments are hypokinetic. Stage II diastolic dysfunction. Severe LA enlargement and mild RA enlargement. There is mild mitral annular calcification. Anterior mitral valve leaflet is normal; posterior leaflet is tethered; there is severe eccentric posterolaterally directed MR in the setting of annular dilation and tethered posterior leaflet. Aortic valve leaflets are normal; there is moderate central AI. Tricuspid valve leaflets are normal; there is moderate central TR in the setting of pacing lead traversing the tricuspid valve. Estimated PA systolic pressure is 72-77 mm Hg assuming RA pressure of 15-20 mm Hg. There is moderate right pleural effusion. There is incidentally noted thyroid mass on suprasternal views measuring about 4.8 cm diameter. Compared to prior study performed 03/08/2016. LV is visually less dynamic. PA systolic pressure is up from 42 mm Hg to 72-77 mm Hg. This most likely reflects rising LV EDP with associated increase in PASP. Reading Physician:03: 10 PM Assessment & Plan Patient is a pleasant 81-year-old woman with history of cardiomyopathy, hemorrhagic CVA, ICD in place, paroxysmal atrial fibrillation, and congestive heart failure recently discharge from [facility] after craniotomy for hematoma evacuation, released to [facility] for rehabilitation, and has had progressive shortness of breath and lower extremity edema. Believed to be in CHF exacerbation secondary to fluid retention, received IV furosemide in the emergency department and symptoms are resolving. Hospital day 3 1. Acute on chronic systolic and diastolic congestive heart failure exacerbation , present on admission, improving - [place] to be most likely due to discontinuation of Lasix from her recent hospitalization, and subtherapeutic doses in the subsequent days leading to admission. - EF 20-25% on echo done 05/21/16. - Stop Lasix 80 mg twice a day. - Hold torsemide 40 mg daily, see below -discussed with Dr. Guzman of cardiology - Metoprolol succinate 100 mg daily. - Losartan 50 mg daily. - Cardiology consulting and we appreciate their continued expertise. 2. Sustained ventricular tachycardia, status post defibrillation via ICD, not present on admission, stable. -Possibly due to hypokalemia, this is subsequently been punished. -Patient remained paced throughout the day, without any recurrence following replenishment of potassium. -Increase amiodarone 200 mg to 400 mg once daily -We will add 12.5 milligrams spironolactone in addition to potassium supplementation. -Torsemide to temporarily be withheld. 3. Acute hypokalemia, not present on admission, treatment ongoing. A.m. labs showed low potassium, this was treated with IV potassium supplementation All recheck with a.m. BMP 3. Acute on chronic Elevated troponin, present on admission, improved. - Most likely initially due to demand ischemia given increased fluid status. Increased on hospital day 2 following several shocks from her ICD. - Continue telemetry monitoring. - Continue to trend 4. Acute Leukocytosis with left shift, present on admission. Resolved. - Leukocyte margination secondary to physiologic stress secondary to above- mentioned conditions - Continue to monitor CBC. 5. Paroxysmal atrial fibrillation, acute on chronic, not present on admission, ongoing. - Overnight, a. fib with RVR with rates into 180s. - Amiodarone drip completed. 200 mg by mouth daily for maintenance. - Metoprolol succinate started 100 mg daily. - Warfarin dosing per pharmacy. This was restarted 2 days before admission, with the initial plan to restart her on warfarin 2 weeks following subdermal hematoma evacuation. - Continue telemetry. 6. Chronic kidney disease stage III, presume stable. - Patient's creatinine appears to be at baseline as well as her estimated GFR. - Continue to monitor BMP. 7. Chronic anemia, presume stable. - Baseline appears to be Hgb about 8-9. - Continue to monitor CBC. 8. Hypothyroidism, chronic, presume stable. - Continue levothyroxine 50 mcg daily. 9. Hyperlipidemia, chronic, presume stable. - Continue atorvastatin 40 mg HS. - Antiemetic available PRN. - Bowel regimen available PRN. - Antacid available PRN. Disposition: anticipate discharge to home vs. SNF in 1-2 days. Currently trying to stabilize patient on her medications again. Pain Evaluation: Adequate Pain Control GI Prophylaxis: Not indicated VTE Prophylaxis: SCDs Resuscitation Status: DNR/DNI:Do Not Resuscitate/Intubate Time spent 35 minutes Attending Statement The patient was seen and examined together with Dr. Cervantes on 05/24/16 and I agree with the history, exam and plan as outlined in the note above. Hal Cervantes DO May 24, 2016 19:34 Cristy Denney DO May 29, 2016 16:53
[2016-05-25 03:06] VITALS: BP 123/60; PULSE 83; RESP 18; O2SAT 92
[2016-05-25 03:29] LABS: Mean Corpuscular Hemoglobin 29.9 pg (27.0-35.0); Mean Corpuscular Volume 95.1 fL (81-100)
[2016-05-25 03:38] LABS: INR 1.17 ratio
[2016-05-25 04:10] LABS: Magnesium 2.3 mg/dL (1.6-2.6)
[2016-05-25 04:13] LABS: TROPONIN T 0.185 ug/L (0.0-0.011)
[2016-05-25] MEDS ORDERED: Potassium Chloride 20 mEq SR Tablet PO ONE ×2 (04:35→11:40)
--- NOTE | 2016-05-25 06:14 | NUR ---
V-Tach/Diuresis/Tele V-Tach 11 beats and 5 beats, asymptomatic , ordered labs , elevated TRoponin 0.185, K-3.7, paged resident , ordered EKG and Potassium 20 Meq PO. Has voided 1500 Mg plus urine , A&O x3 using call light appropriately, compliant with asking for assistance toileting. Says she is feeling better and less short of breath, lungs coarse, audible. Room air /Saline locked/ Telemetry A/V-Paced 80's
[2016-05-25 08:41] VITALS: BP 126/63; PULSE 96; RESP 16; O2SAT 97
[2016-05-25] MEDS: MeTOProlol XL 50 mg ER24 Tablet PO SCH (08:45)
[2016-05-25] MEDS: ENTRESTO PO SCH (08:47)
--- NOTE | 2016-05-25 10:08 | NUR ---
Ready to go Pt stated she was informed she could go home today. Stated first thing this shift she was ready to go and wanted to talk with MD. Encouraged pt MD would notify pt when discharge was possible. Pt resting after eating breakfast. MD notified of pt wishes. Care continues.
[2016-05-25 10:31] VITALS: PULSE 93
--- NOTE | 2016-05-25 11:02 | NUR ---
Social Work Note: Readiness for Discharge Data& Assessment: EMR reviewed. Per MD pt is getting closer to being medically ready for discharge. Per PT, pt could benefit from Home Health PT. Pt no longer requires SNF for physical therapy needs as she ambulated over 160 ft. SW met with pt at bedside to discuss discharge planning. SW explained to pt that she may qualify for SNF stay for nursing needs. Pt explained that she wants to go home. SW discussed home health services with pt. Pt explained that her son will be staying with her and her daughter as she transitions home from the hospital and she does not believe she will be home bound either. Pt explained that she has learned exercises at [facility] and plans to practice them at home on or at a gym. Pt confirmed her daughter will be transporting her home when she is discharged. Pt denied any other needs. No other discharge needs identified. Plan: Anticipated discharge home via POV. Pt declined SNF for RN needs and declined Home Health services as recommended by PT. Pt confirmed her daughter will be transporting her home when she is discharged. Pt denied any other needs. No other discharge needs identified. JV Murray
[2016-05-25 11:50] VITALS: BP 114/61; PULSE 83; RESP 18; O2SAT 96
[2016-05-25] MEDS ORDERED: AMIO200T PO ×2 (11:50→11:56)
[2016-05-25] MEDS ORDERED: TORS20TA3 PO (11:50)
[2016-05-25] MEDS ORDERED: SPIR25TA PO (11:50)
[2016-05-25] MEDS ORDERED: POTA8TAB PO (11:59)
--- NOTE | 2016-05-25 12:08 | PCM.DIMED ---
Hal Evans DO 05/25/16 1208: Discharge Instructions Date of Service May 25, 2016 Dates of Hospitalization May 21, 2016 at 09:08 Discharge Diagnosis Discharge Diagnosis 1. 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 Sustained ventricular tachycardia, status post defibrillation via ICD 3. Acute hypokalemia 3. Acute on chronic Elevated troponin 4. Acute Leukocytosis with left shift 5. Paroxysmal atrial fibrillation, acute on chronic 6. Chronic kidney disease stage III 7. Chronic anemia 8. Hypothyroidism, chronic 9. Hyperlipidemia, chronic Medication Instructions Amiodarone 400 mg daily, by mouth Spironolactone 12.5mg daily, by mouth (Half a pill) Torsemide 20 mg daily by mouth Potassium chloride 8 mEq by mouth every day Diet Heart Healthy Activity No restrictions Call your provider Fever or Chills, Shortness of breath, Bleeding, Chest pain Patient Instructions Please take all medications as prescribed. Please follow-up with your primary care physician within one week Please follow-up with Dr. Guzman of cardiology in 2 weeks If you have any chest pain, lightheadedness, dizziness, increased tiredness, recurrence of difficulty breathing and/or swelling in your legs please do not hesitate coming to the ER or calling 911 if necessary. Stop taking warfarin Stop taking furosemide Stop taking Entresto until seen by your Sita Montes. You will need to start taking Plavix, prescribed by your primary care provider 6 weeks from the head believe you had. This appears to be June 15, 2016. Follow-up plan Follow-up with her primary care physician, Sita Montes within 1 week. Follow-up with Dr. Guzman of cardiology in 2 weeks. If you experience any complications, you may contact their offices and request to be seen sooner. Follow-up Provider: Yeni Montes Follow-up with PCP in: 1 week Provider: Jocelyn Lopez MD Follow-up in: 2 weeks Cristy Denney DO 05/25/16 1329: Discharge Instructions Attending's Statement The patient was seen and examined together with Dr. Evans on 05/25/16 and I agree with the history, exam and plan as outlined in the note above. Hal Evans DO May 25, 2016 12:08 Cristy Denney DO May 25, 2016 13:29
--- NOTE | 2016-05-25 12:49 | PROG NOTE ---
[address] [address] PROGRESS NOTE PATIENT: MELISSA HENDRICKSON : 1935 MR#: [id number] ADMIT: 05/21/2016 JOB ID: [id number] DATE: 05/25/2016 PROGRESS NOTE: The patient had another episode of seven beat run of ventricular tachycardia around 2:00 a.m. It self terminated. She reports feeling better today. She would like to go home. She denies chest discomfort, orthopnea, or PND. OBJECTIVE: Temperature is 37.0. Blood pressure is 114/61. Pulse 83. Neck: No jugular venous distention. Lungs are clear to auscultation. Heart: The first heart sound is diminished. Second heart sound is normal. Grade 1/6 holosystolic murmur at the apex. Abdomen: Soft. Extremities: No clubbing, cyanosis, or edema. DIAGNOSTIC DATA: Blood tests show hemoglobin 9.1, WBC 7.9, platelet 252. Sodium 139, potassium 3.7, chloride 97, bicarb 24, BUN 41, creatinine 1.35. Troponin T is 0.185. IMPRESSION: 1. Elevated troponin due to defibrillation. 2. Acute on chronic combined systolic and diastolic heart failure, resolved. 3. Ventricular tachycardia. 4. Ischemic cardiomyopathy with ejection fraction 20% to 25%. 5. Paroxysmal atrial fibrillation, currently in sinus. 6. Recent subdural hematoma. PLAN: Potassium supplement will be given to maintain her potassium level above 4.0. Torsemide will be withheld for another day, as she remains on the dry side. The patient could be discharged from the hospital today and follow up with me in two weeks with BMP and BNP. She should be discharged on a higher dose of amiodarone of 400 mg once daily.
--- NOTE | 2016-05-25 13:40 | NUR ---
Discharge Pt discharged at approximately 1320 to home with daughter transporting. Pt given educational material re CHF and Afib, next dose to be taken clearly written and dated. Per MD all new prescriptions to be started 05/26/16, noted and verbalized to patient, new prescriptions included in packet. Pt acknowledged and understood all information. IV DC'd with catheter intact, tele DCd elevator service technician notified. Pt left with all personal belongings. Escorted by STAND UP FORKL[employer] OPERATOR via wheelchair to front door.
--- NOTE | 2016-05-25 21:26 | PCM.DC.MED ---
Discharge Summary Date of Service May 25, 2016 Dates of Hospitalization Date of Hospital Admission May 21, 2016 at 09:08 Date of Discharge: May 25, 2016 Providers: Admitting Physician: Freeman Moran MD Primary Care Physician: Yeni Montes Attending Physician: Freeman Moran MD Diagnosis at Time of Discharge Diagnosis at Time of Discharge 1. 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 Sustained ventricular tachycardia, status post defibrillation via ICD 3. Acute hypokalemia 3. Acute on chronic Elevated troponin 4. Acute Leukocytosis with left shift 5. Paroxysmal atrial fibrillation, acute on chronic 6. Chronic kidney disease stage III 7. Chronic anemia 8. Hypothyroidism, chronic 9. Hyperlipidemia, chronic Consultations Cardiology Procedures XRay, CTs & MRIs Portable chest x-ray performed 05/21/2016 IMPRESSION: 1. Increased pulmonary edema with medial bibasilar atelectasis or consolidation. 2. Small right pleural effusion 3. Enlargement of the heart compared to the prior study. This may be due to differences in technique versus a pericardial effusion. Recommend a repeat PA and lateral study when clinically feasible. Dictated by: Kartik Blank M.D. on 05/21/2016 at 8:52 Cardiac Echo Impression Interpretation Summary Normal sinus rhythm. Severely dilated LV; normal wall thickness. There is severely reduced LV systolic function, estimated at 20-25%. There are focal wall motion abnormalities with mid-inferior, distal inferior, mid-inferolateral, basal inferior akinesis. All other segments are hypokinetic. Stage II diastolic dysfunction. Severe LA enlargement and mild RA enlargement. There is mild mitral annular calcification. Anterior mitral valve leaflet is normal; posterior leaflet is tethered; there is severe eccentric posterolaterally directed MR in the setting of annular dilation and tethered posterior leaflet. Aortic valve leaflets are normal; there is moderate central AI. Tricuspid valve leaflets are normal; there is moderate central TR in the setting of pacing lead traversing the tricuspid valve. Estimated PA systolic pressure is 72-77 mm Hg assuming RA pressure of 15-20 mm Hg. There is moderate right pleural effusion. There is incidentally noted thyroid mass on suprasternal views measuring about 4.8 cm diameter. Compared to prior study performed 03/08/2016. LV is visually less dynamic. PA systolic pressure is up from 42 mm Hg to 72-77 mm Hg. This most likely reflects rising LV EDP with associated increase in PASP. Reading Physician:03: 10 PM Brief History From admission note: "Patient is a pleasant 81-year-old woman who presented to [facility] 's emergency department from [facility]. Experiencing progressive shortness of breath, lower cavity edema, and reported weight gain. She has a significant medical history for congestive heart failure, hemorrhagic CVA status post craniotomy performed at [facility] during her admission from May 03 to 05/13/2016. She has ICD in place for ventricular tachycardia, history of NSTEMI, coronary artery disease, chronic anemia hyperlipidemia, paroxysmal atrial fibrillation, cardiomyopathy, and hypothyroidism. Daughter states that on discharge from [facility] her Lasix was discontinued, she was transferred to [facility] wear until 2 days ago she received no Lasix and was only restarted her on 20 mg daily. Additionally daughter conveys that she received a call stating that her ICD fired twice in the last week and it was requested that her device be interrogated for evaluation. In the emergency department she was found to have: Temperature 36.6, heart rate 105, respiratory rate 26, blood pressure 132/68, pulse ox 92 on 4 L nasal cannula. White blood cells 13.3, hemoglobin 9.3, platelets 396, neutrophils 79.1%. Electrolytes were normal, creatinine 1.22, glucose 164, troponin T was 0.017 proBNP was 34.7k. Chest x-ray was read as having decreased pulmonary edema. Bibasilar atelectasis or consolidation, small right pleural effusion, enlargement of the heart compared to previous study. She received 80 mg of IV furosemide, which produce significant diuresis. On evaluation at admission she states she is feeling subjectively better, easier to breathe, no lightheadedness, dizziness, no chest pain, mild occasional cough , no dysuria, swelling in her lower extremities has reduced, no rashes, no headache, no changes in vision." Hospital Course Patient is a pleasant 81-year-old woman with history of cardiomyopathy, hemorrhagic CVA, ICD in place, paroxysmal atrial fibrillation, and congestive heart failure recently discharge from [facility] after craniotomy for hematoma evacuation, released to [facility] for rehabilitation, and has had progressive shortness of breath and lower extremity edema. Believed to be in CHF exacerbation secondary to fluid retention, received IV furosemide in the emergency department and symptoms are resolving. She was admitted to progressive care unit for diuresis and monitoring of arrhythmia, and blood pressure. She received IV Lasix, which she responded very well to. After initial couple rounds of Lasix patient said she felt back to her baseline, however she developed an episode of sustained ventricular tachycardia, and acute hypokalemia. She was changed from Lasix to torsemide, given spironolactone, potassium supplementation, watched for an additional 24 hours, hypokalemia normalized, she did not have recurrence of sustained V. tach, blood pressure remained stable, patient remained asymptomatic. Overall she had 5.7 L diuresed before discharge. 1. 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 - EF 20-25% on echo done 05/21/16. - Stop Lasix 80 mg twice a day. - Start and continue 20 mg torsemide daily following discharge - Metoprolol succinate 100 mg daily. - Losartan 50 mg daily. - Cardiology consultied we appreciate their recommendations and expertise. 2. Sustained ventricular tachycardia, status post defibrillation via ICD, not present on admission, stable. - Attributed to hypokalemia, this is subsequently been replenished -Patient remained paced throughout the day before discharge, without any recurrence following replenishment of potassium. -Increase amiodarone 200 mg to 400 mg once daily -12.5 milligrams spironolactone in addition to potassium supplementation. -Torsemide to temporarily be withheld, to be started day after discharge. 3. Acute hypokalemia, not present on admission, resolved -Hypokalemia presented following few rounds of IV Lasix, IV Lasix changed to torsemide as above, addition of spironolactone, IV and oral replenishment of potassium. -Per cardiology's recommendation, goal of serum potassium is is greater than 4.0 -Patient given additional oral supplementation, 20 mEq of potassium chloride prior to discharge. -Will need to check BMP to assess potassium level as an outpatient 3. Acute on chronic Elevated troponin, present on admission, improved. - Most likely initially due to demand ischemia given increased fluid status. Increased on hospital day 2 following several shocks from her ICD. Remained elevated day of discharge -Remained on telemetry throughout hospital stay, no ischemic or infarctive events. 4. Acute Leukocytosis with left shift, present on admission. Resolved. - Leukocyte margination secondary to physiologic stress secondary to above- mentioned conditions - CBC unremarkable day of discharge 5. Paroxysmal atrial fibrillation, acute on chronic, not present on admission, ongoing. - Overnight, a. fib with RVR with rates into 180s. - Amiodarone drip completed. 200 mg by mouth daily for maintenance. - Metoprolol succinate started 100 mg daily. - Warfarin has been discontinued. - Begin the Plavix at 6 week zuleyma following treatment for hemorrhagic CVA, this appears to be 06/15/2016 6. Chronic kidney disease stage III, presume stable. - Patient's creatinine appears to be at baseline as well as her estimated GFR. - Continue to monitor BMP. 7. Chronic anemia, presume stable. - Baseline appears to be Hgb about 8-9. - Remained stable throughout admission 8. Hypothyroidism, chronic, presume stable. - Continued levothyroxine 50 mcg daily. 9. Hyperlipidemia, chronic, presume stable. - Continue atorvastatin 40 mg HS. - Antiemetic available PRN. - Bowel regimen available PRN. - Antacid available PRN. Patient tolerated her hospital treatment well. She was present and proactive in her treatment. She was evaluated by physical therapy and deemed competent to perform activities of daily life as well as self-care, as such near this did not accept her as a readmission for physical therapy. She has good support system at home including family, and will seek outpatient physical therapy as needed. At time of discharge patient felt as though she was back to baseline, swelling in her feet, and difficulty breathing had resolved. Exam Vital Signs (Last) Date Time Temp Pulse Resp B/P Pulse Ox O2 Delivery O2 Flow Rate FiO2 05/25/16 11:50 37.0 83 18 114/61 96 Room Air 05/24/16 07:56 1.00 05/22/16 02:24 97 Exam General: Sitting on side of bed, no apparent distress. A&O x3. HEENT: Normocephalic, sagittal surgical scar, extraocular muscles intact, mucous membranes moist, conjunctivae pink, neck is supple without adenopathy trachea midline. Cardiovascular: Bradycardic, regular, systolic murmur heard at right upper sternal border, harsh systolic murmur at left midaxillary line Pulmonary: Fine bibasilar rales with resolution after one deep breathing cycle. No wheezing, chest excursion equal bilaterally. Abdominal: Soft to palpation, nontender, nondistended, bowel sounds present 4, no hepatosplenomegaly. Extremities: No cyanosis or edema appreciated. Clubbing of the toes noted. Radial and dorsalis pedis pulses present and equivalent bilaterally. Skin: no wounds or ulcers appreciated Neuro: Neurologically grossly intact, strength is equal bilaterally upper and lower extremities. Test 05/21/16 06:39 05/21/16 09:08 05/22/16 03:24 05/23/16 02:52 Pro-B-Type Natriuretic Peptide 39302sv/mL (0-738) Urine Color Straw (YELLOW) Urine Appearance Clear (CLEAR,HAZY) Urine pH 6.0 (5.0-8.0) Urine Specific [place] 1.006 (1.003-1.035) Urine Protein Negativemg/dL (NEG,TRACE) Urine Glucose (UA) Negativemg/dL (NEGATIVE) Urine Ketones Negativemg/dL (NEGATIVE) Urine Occult Blood Negative (NEGATIVE) Urine Nitrite Negative (NEGATIVE) Urine Bilirubin Negative (NEGATIVE) Urine Urobilinogen Normalmg/dL (NORMAL) Urine Leukocyte Esterase Negative (NEGATIVE) Urine RBC 0-2/hpf (0-2) Urine WBC 0-5/hpf (0-5) Urine Epithelial Cells Few/hpf (NONE-MOD) Urine Crystals None seen (NONE SEEN) Urine Bacteria None/hpf (NONE-FEW) Urine Hyaline Casts None/lpf (NONE) Urine Granular Casts None seen (NONE SEEN) Urine Waxy Casts None seen (NONE SEEN) Urine Red Blood Cell Casts None seen (NONE SEEN) Urine White Blood Cell Casts None seen (NONE SEEN) Urine Mucus None seen (None Seen) Urine Trichomonas None seen (NONE SEEN) Urine Yeast None (NONE SEEN) Urinalysis Comment None Urine Culture Reflexed Not indicated Neutrophils (%) (Auto) 74.9% (40-74) Lymphocytes (%) (Auto) 13.1% (14-46) Monocytes (%) (Auto) 10.9% (4-12) Eosinophils (%) (Auto) 0.6% (0-5) Basophils (%) (Auto) 0.2% (0-3) Total Bilirubin 0.8mg/dL (0.0-1.2) Aspartate Amino Transf (AST/SGOT) 20U/L (0-50) Alanine Aminotransferase (ALT/SGPT) 15U/L (0-32) Alkaline Phosphatase 76U/L (25-165) Total Protein 6.4g/dL (6.4-8.4) Albumin 3.4g/dL (3.4-5.0) Phosphorus Level 4.4mg/dL (2.5-4.9) Test 05/24/16 02:45 05/25/16 02:55 Total Creatine Kinase 82U/L (21-215) Creatine Kinase MB 1.8ng/mL (0.0-5.3) Creatine Kinase MB % % (0.0-5.0) White Blood Count 7.9th/mm3 (3.8-10.1) Red Blood Count 3.04mil/mm3 (3.90-5.20) Hemoglobin 9.1g/dL (12.0-15.6) Hematocrit 28.9% (35.0-46.0) Mean Corpuscular Volume 95.1fL (81-100) Mean Corpuscular Hemoglobin 29.9pg (27.0-35.0) Mean Corpuscular Hemoglobin Concent 31.5% (32.0-37.0) Red Cell Distribution Width 18.1% (12.3-15.4) Platelet Count 252bil/L (150-400) Prothrombin Time 12.6sec (8.1-12.5) Prothromb Time International Ratio 1.17ratio Sodium Level 139mEq/L (134-144) Potassium Level 3.7mEq/L (3.5-5.2) Chloride Level 97mEq/L (97-108) Carbon Dioxide Level 24mmol/L (18-29) Blood Urea Nitrogen 41mg/dL (8-27) Creatinine 1.35mg/dL (0.57-1.00) Estimat Glomerular Filtration Rate 54mL/min (>59) Glucose Level 118mg/dL (60-99) Calcium Level 8.5mg/dL (8.5-10.1) Magnesium Level 2.3mg/dL (1.6-2.6) Troponin T 0.185ug/L (0.0-0.011) Discharge Medications Discharge Medications Amiodarone (Amiodarone) 200 Mg Tablet 400 MG PO DAILY Prescribed by: DUSTY RENDON DO Atorvastatin Calcium (Atorvastatin Calcium) 40 Mg Tablet 40 MG PO HS (Reported) Cholecalciferol (Vitamin D3) (Vitamin D3) 2,000 Unit Tablet 2,000 UNIT PO DAILY (Reported) Levothyroxine (Levoxyl) 50 Mcg Tablet 50 MCG PO DAILY (Reported) Metoprolol Succinate ER (Metoprolol Succinate ER) 100 Mg Tab.er.24h 100 MG PO DAILY (Reported) Potassium Chloride (K-Tab ER) 8 Meq Tablet.er 8 MEQ PO DAILY Prescribed by: DUSTY RENDON DO Spironolactone (Aldactone) 25 Mg Tablet 12.5 MG PO DAILY Prescribed by: DUSTY RENDON DO Torsemide (Torsemide) 20 Mg Tablet 20 MG PO DAILY Prescribed by: DUSTY RENDON DO As needed Acetaminophen (Acetaminophen) 325 Mg Tablet 325 MG PO Q6H PRN PRN For Pain ( Reported) Benzonatate (Benzonatate) 100 Mg Capsule 100 MG PO TID PRN PRN For Cough ( Reported) Guaifenesin/Codeine Phosphate (Guaifenesin-Codeine Syrup) 5 Ml Liquid 5 ML PO Q4H PRN PRN For Cough (Reported) Melatonin (Melatonin) 3 Mg Tablet 3 MG PO PRN Insomnia (Reported) Nitroglycerin SL (Nitrostat) 0.4 Mg Tab.subl 0.4 MG SL Q5MIN PRN PRN For Chest Pain (Reported) Additional med instructions Amiodarone 400 mg daily, by mouth Spironolactone 12.5mg daily, by mouth (Half a pill) Torsemide 20 mg daily by mouth Potassium chloride 8 mEq by mouth every day Followup Plan Follow-up plan Follow-up with her primary care physician, Sita Montes within 1 week. Follow-up with Dr. Guzman of cardiology in 2 weeks. If you experience any complications, you may contact their offices and request to be seen sooner. Discharge Diet: Heart Healthy Discharge Activity: No restrictions Patient Instructions Please take all medications as prescribed. Please follow-up with your primary care physician within one week Please follow-up with Dr. Guzman of cardiology in 2 weeks If you have any chest pain, lightheadedness, dizziness, increased tiredness, recurrence of difficulty breathing and/or swelling in your legs please do not hesitate coming to the ER or calling 911 if necessary. Stop taking warfarin Stop taking furosemide Stop taking Entresto until seen by your Sita Montes. You will need to start taking Plavix, prescribed by your primary care provider 6 weeks from the head believe you had. This appears to be June 15, 2016. Follow-up Provider: Yeni Montes Follow-up with PCP in: 1 week Provider: Jocelyn Lopez MD Follow-up in: 2 weeks Time spent Greater than 35 minutes Attending Statement The patient was seen and examined together with Dr. Evans on 05/25/2016 and I have added additional information to the note above. copies to: Yeni Montes Noah M DO May 25, 2016 21:26 Cristy Denney DO May 28, 2016 14:27
== END 2016-05-25 13:15 | disposition home or self-care (01) ==
LOC: EDBD 06:32 → SED 06:32 → PCC 09:08 → INTOOBSV 09:08 → OBSVTOIN 09:08
PROVIDERS: ADMIT Internal Medicine; ATTEND Internal Medicine
PROC: 4B02XTZ Measurement of Cardiac Defibrillator, External Approach (ICD-10-PCS; principal; 2016-05-22)
PROC: 3E040RZ Introduction of Antiarrhythmic into Central Vein, Open Approach (ICD-10-PCS; 2016-05-22)
DX: I50.43 Acute on chronic combined systolic (congestive) and diastolic (congestive) heart failure (principal); I24.8 Other forms of acute ischemic heart disease; I47.2 Ventricular tachycardia; I25.5 Ischemic cardiomyopathy; I25.10 Atherosclerotic heart disease of native coronary artery without angina pectoris; I48.0 Paroxysmal atrial fibrillation; E03.9 Hypothyroidism, unspecified; Z66 Do not resuscitate; I34.0 Nonrheumatic mitral (valve) insufficiency; E78.5 Hyperlipidemia, unspecified; N18.3 Chronic kidney disease, stage 3 (moderate); D64.9 Anemia, unspecified; E87.6 Hypokalemia; I12.9 Hypertensive chronic kidney disease with stage 1 through stage 4 chronic kidney disease, or unspecified chronic kidney disease; Z95.0 Presence of cardiac pacemaker; Z87.891 Personal history of nicotine dependence; Z86.73 Personal history of transient ischemic attack (TIA), and cerebral infarction without residual deficits; I25.2 Old myocardial infarction; Z79.01 Long term (current) use of anticoagulants; Z91.81 History of falling
CPT/HCPCS: 36415; 71010; 80048; 80053; 81000; 82550; 82553; 83735; 83880; 84100; 84484; 85025; 85027; 85610; 93005; 94660; 94799; 96374; 97116; 97161; 99291; C8929; J0282; J1940; J2765; J3475; J7040; J7050; J7620